=== PATIENT | female | born 1995 | race Caucasian/White ===

== ENCOUNTER 2022-03-02 18:01 | Inpatient (IN) ==
--- NOTE | 2022-03-02 18:58 | Emergency Department Note ---
Impression & Plan Suicidal ideation, UTI (urinary tract infection) ED Provider Note NAME: KHADRA BURR AGE: 26 SEX: F : 1995 ARRIVES VIA: Walk-In INFORMANT: [Patient] ED PROVIDER(S): [Horace Godinez MD] CHIEF COMPLAINT: Mental health evaluation HISTORY OF PRESENT ILLNESS: The patient is a 26-year-old female who presents to the ER with some suicidal thoughts. She has a plan to take pills. Patient has a long history of depression but things have worsened in the last several months. She moved back to this area, she has been here for 4 months. She and her are going through a divorce. The patient is under a lot of stress caring for her child who has a brain injury. She cannot sleep because she is always caring for him. The patient states that she also lost her grandmother earlier this year and that has been weighing on her. When the patient began having some suicidal thoughts and thinking about overdosing, she felt she needed some help, she presents for evaluation asking for a voluntary psychiatric stay. There has been no cough or congestion. No other complaints or concerns. She is eating but thinks she may have lost some weight. REVIEW OF SYSTEMS: See HPI for pertinent positives and negatives. A total of ten systems were reviewed and were otherwise negative. PMHx/PSHx: See Below SOCIAL HISTORY: See Below. PHYSICAL EXAM: GENERAL: Patient is in no acute distress. HEENT: No acute trauma, normocephalic atraumatic, mucous membranes moist, no nasal congestion, no scleral icterus. NECK: No stridor, no adenopathy, no meningismus, trachea is midline. LUNGS: Clear to auscultation bilaterally, no wheeze, no rhonchi, breath sounds equal. HEART: Without murmurs gallops or rubs, regular rate and rhythm. ABDOMEN: Soft, nontender, bowel sounds positive, no peritonitis. EXTREMITIES: No cyanosis or edema, full range of motion of all the joints without pain or difficulty, no signs for acute trauma. NEUROLOGIC: Oriented x 3, no acute motor or sensory deficits, no focal weakness. SKIN: No rash, no jaundice, no diaphoresis. Psychiatric: Cooperative, voluntary, tearful at times when discussing the stress of her life. Admits to thinking about taking pills in overdose. DIFFERENTIAL DIAGNOSIS: Mood disorder, infection, hypoglycemia, electrolyte abnormalities, depression, anxiety, suicidality, cardiac sources, intracerebral event, toxicologic etiology, trauma, neurologic event, as well as other pathologies. EMERGENCY DEPARTMENT COURSE/PROCEDURES: MEDICAL DECISION MAKING: There is no leukocytosis or concerning anemia. There is a normal platelet count. No renal failure or significant electrolyte abnormality, no concerning liver enzyme elevation. The patient appears to be in a euthyroid state. testing was negative. Urinalysis did suggest infection, urine culture is pending. Aspirin, Tylenol and alcohol levels were undetectable. Urine tox was negative. COVID test was negative. On exam, the patient was voluntary and cooperative. She did admit to some suicidal ideation with a plan to overdose on pills. The patient was felt medically clear. She was seen by psychiatry case management. She has been accepted to this hospital psychiatric floor, 3 S. She is being admitted voluntarily. The patient does have a UTI, this can easily be managed with Macrobid. A dose of oral Macrobid was given here as the start of treatment. Past Med/Surg History Medical History Depression Social History Smoking Status: Never smoker Preferred Language: Guatemalan 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: Effective Payroll Associate Required: No Beliefs That Will Affect Care: None Feels Safe at Home: Yes Assistive Devices: None Allergies Allergies Allergy/AdvReac Type Severity Reaction Status Date / Time No Known Allergies Allergy Unverified 03/02/22 22:31 Results & Data (ED) Vital Signs Vital Signs - 24 hr 03/02/22 18:20 Temperature 36.7 C Temperature Source Temporal Artery Scan Pulse Rate 87 Respiratory Rate 16 Respiratory Effort / Characteristics Non-Labored Spontaneous Respiratory Depth Normal Respiratory Pattern Regular Blood Pressure 136/80 Blood Pressure Mean 98 Blood Pressure Position Sitting Pulse Oximetry 98 Oxygen Delivery Method Room Air Sepsis Recent Fever Within 48 Hours No Sepsis New/Unexplained Change in Mental Status No Sepsis Action Taken by Nursing No Action Required Home Medications Current Medication List: was personally reviewed by me Laboratory Data Attestation: I reviewed the patient's lab results. Result diagrams: 03/02/22 19:00 03/02/22 19:00 Lab Results 03/02/22 03/02/22 03/02/22 Range/Units 18:50 18:50 18:55 WBC (4.8-10.8) K/ul RBC (3.93-5.22) M/uL Hgb (12.0-16.0) g/dl Hct (34.1-44.9) % MCV (80.0-100.0) fL MCH (25.0-34.0) pg MCHC (32.0-36.0) g/dL RDW Std Deviation (36.4-46.3) fL RDW Coeff of Iqra (11.5-14.5) % Plt Count (130-400) K/uL MPV (9.4-12.3) fL Immature Gran % (Auto) % Neut % (Auto) % Lymph % (Auto) % [place] % (Auto) % Eos % (Auto) % Baso % (Auto) % Neut # (Auto) (1.4-6.5) K/uL Lymph # (Auto) (1.2-3.4) K/uL [place] # (Auto) (0.24-0.82) K/uL Eos # (Auto) (0-0.50) K/uL Baso # (Auto) (0-0.2) K/uL Immature Gran # (Auto) (0.00-0.02) K/uL Sodium (136-145) mmol/L Potassium (3.5-5.1) mmol/L Chloride (98-107) mmol/L Carbon Dioxide (21-32) mmol/L Anion Gap (3-11) BUN (6-23) mg/dl Creatinine (0.6-1.2) mg/dl Est Cr Clr Drug Dosing ml/min Est GFR ( Amer) ml/min Est GFR (Non-Af Amer) ml/min BUN/Creatinine Ratio (10-20) Glucose (70-99(Fasting)) mg/dl Calcium (8.5-10.1) mg/dl Total Bilirubin (0.2-1.0) mg/dl AST (13-39) U/L ALT (7-52) U/L Alkaline Phosphatase (34-104) U/L Total Protein (6.0-8.3) gm/dl Albumin (3.4-5.0) gm/dl Globulin (2.5-4.0) gm/dl Albumin/Globulin Ratio (0.9-2) TSH (0.300-4.500) uIu/ml HCG, Qual (Negative) Urine Color Yellow Urine Appearance Clear (Clear) Urine pH 5.5 (4.5-7.5) Ur Specific [place] 1.024 (1.000-1.030) Urine Protein Negative (Negative) Urine Glucose (UA) Negative (Negative) Urine Ketones Negative (Negative) Urine Blood Negative (Negative) Urine Nitrite Positive A (Negative) Urine Bilirubin Negative (Negative) Urine Urobilinogen Negative (Negative) Ur Leukocyte Esterase Negative (Negative) Urine WBC (Auto) 1-5 (0-5) /hpf Urine RBC (Auto) 0-4 (0-4) /hpf U Hyaline Cast (Auto) 1-5 (0-5) /lpf U Epithel Cells (Auto) 20-30 H (0-5) /lpf Urine Bacteria (Auto) 4+ H (Negative) Salicylates (3.0-30) mg/dl Urine Opiates Screen Neg (Neg) Ur Methadone, Qual Neg (Neg) Acetaminophen (10-30) ug/ml Urine Barbiturates Neg (Neg) Ur Phencyclidine (PCP) Neg (Neg) U Amphetamin/Meth Scrn Neg (Neg) MDMA (Ecstasy) Screen Neg (Neg) U Benzodiazepines Scrn Neg (Neg) Ur Cocaine Metabolite Neg (Neg) U Marijuana (THC) Screen Neg (Neg) Ethyl Alcohol mg/dL (<10.0) mg/dl SARS-CoV-2, RNA, NAAT NEGATIVE (NEGATIVE) 03/02/22 03/02/22 03/02/22 Range/Units 19:00 19:00 19:00 WBC 5.96 (4.8-10.8) K/ul RBC 4.55 (3.93-5.22) M/uL Hgb 14.6 (12.0-16.0) g/dl Hct 42.7 (34.1-44.9) % MCV 93.8 (80.0-100.0) fL MCH 32.1 (25.0-34.0) pg MCHC 34.2 (32.0-36.0) g/dL RDW Std Deviation 44.1 (36.4-46.3) fL RDW Coeff of Iqra 12.8 (11.5-14.5) % Plt Count 236 (130-400) K/uL MPV 10.5 (9.4-12.3) fL Immature Gran % (Auto) 0.2 % Neut % (Auto) 70.1 % Lymph % (Auto) 22.7 % [place] % (Auto) 6.0 % Eos % (Auto) 0.3 % Baso % (Auto) 0.7 % Neut # (Auto) 4.18 (1.4-6.5) K/uL Lymph # (Auto) 1.35 (1.2-3.4) K/uL [place] # (Auto) 0.36 (0.24-0.82) K/uL Eos # (Auto) 0.02 (0-0.50) K/uL Baso # (Auto) 0.04 (0-0.2) K/uL Immature Gran # (Auto) 0.01 (0.00-0.02) K/uL Sodium 139 (136-145) mmol/L Potassium 4.0 (3.5-5.1) mmol/L Chloride 108 H (98-107) mmol/L Carbon Dioxide 27 (21-32) mmol/L Anion Gap 4 (3-11) BUN 18 (6-23) mg/dl Creatinine 0.83 (0.6-1.2) mg/dl Est Cr Clr Drug Dosing 87.1 ml/min Est GFR ( Amer) 111.2 ml/min Est GFR (Non-Af Amer) 96.0 ml/min BUN/Creatinine Ratio 21.7 H (10-20) Glucose 103 H (70-99(Fasting)) mg/dl Calcium 9.2 (8.5-10.1) mg/dl Total Bilirubin 0.5 (0.2-1.0) mg/dl AST 13 (13-39) U/L ALT 7 (7-52) U/L Alkaline Phosphatase 56 (34-104) U/L Total Protein 7.1 (6.0-8.3) gm/dl Albumin 4.4 (3.4-5.0) gm/dl Globulin 2.7 (2.5-4.0) gm/dl Albumin/Globulin Ratio 1.6 (0.9-2) TSH 0.718 (0.300-4.500) uIu/ml HCG, Qual (Negative) Urine Color Urine Appearance (Clear) Urine pH (4.5-7.5) Ur Specific [place] (1.000-1.030) Urine Protein (Negative) Urine Glucose (UA) (Negative) Urine Ketones (Negative) Urine Blood (Negative) Urine Nitrite (Negative) Urine Bilirubin (Negative) Urine Urobilinogen (Negative) Ur Leukocyte Esterase (Negative) Urine WBC (Auto) (0-5) /hpf Urine RBC (Auto) (0-4) /hpf U Hyaline Cast (Auto) (0-5) /lpf U Epithel Cells (Auto) (0-5) /lpf Urine Bacteria (Auto) (Negative) Salicylates (3.0-30) mg/dl Urine Opiates Screen (Neg) Ur Methadone, Qual (Neg) Acetaminophen (10-30) ug/ml Urine Barbiturates (Neg) Ur Phencyclidine (PCP) (Neg) U Amphetamin/Meth Scrn (Neg) MDMA (Ecstasy) Screen (Neg) U Benzodiazepines Scrn (Neg) Ur Cocaine Metabolite (Neg) U Marijuana (THC) Screen (Neg) Ethyl Alcohol mg/dL (<10.0) mg/dl SARS-CoV-2, RNA, NAAT (NEGATIVE) 03/02/22 03/02/22 03/02/22 Range/Units 19:00 19:00 19:00 WBC (4.8-10.8) K/ul RBC (3.93-5.22) M/uL Hgb (12.0-16.0) g/dl Hct (34.1-44.9) % MCV (80.0-100.0) fL MCH (25.0-34.0) pg MCHC (32.0-36.0) g/dL RDW Std Deviation (36.4-46.3) fL RDW Coeff of Iqra (11.5-14.5) % Plt Count (130-400) K/uL MPV (9.4-12.3) fL Immature Gran % (Auto) % Neut % (Auto) % Lymph % (Auto) % [place] % (Auto) % Eos % (Auto) % Baso % (Auto) % Neut # (Auto) (1.4-6.5) K/uL Lymph # (Auto) (1.2-3.4) K/uL [place] # (Auto) (0.24-0.82) K/uL Eos # (Auto) (0-0.50) K/uL Baso # (Auto) (0-0.2) K/uL Immature Gran # (Auto) (0.00-0.02) K/uL Sodium (136-145) mmol/L Potassium (3.5-5.1) mmol/L Chloride (98-107) mmol/L Carbon Dioxide (21-32) mmol/L Anion Gap (3-11) BUN (6-23) mg/dl Creatinine (0.6-1.2) mg/dl Est Cr Clr Drug Dosing ml/min Est GFR ( Amer) ml/min Est GFR (Non-Af Amer) ml/min BUN/Creatinine Ratio (10-20) Glucose (70-99(Fasting)) mg/dl Calcium (8.5-10.1) mg/dl Total Bilirubin (0.2-1.0) mg/dl AST (13-39) U/L ALT (7-52) U/L Alkaline Phosphatase (34-104) U/L Total Protein (6.0-8.3) gm/dl Albumin (3.4-5.0) gm/dl Globulin (2.5-4.0) gm/dl Albumin/Globulin Ratio (0.9-2) TSH (0.300-4.500) uIu/ml HCG, Qual Negative (Negative) Urine Color Urine Appearance (Clear) Urine pH (4.5-7.5) Ur Specific [place] (1.000-1.030) Urine Protein (Negative) Urine Glucose (UA) (Negative) Urine Ketones (Negative) Urine Blood (Negative) Urine Nitrite (Negative) Urine Bilirubin (Negative) Urine Urobilinogen (Negative) Ur Leukocyte Esterase (Negative) Urine WBC (Auto) (0-5) /hpf Urine RBC (Auto) (0-4) /hpf U Hyaline Cast (Auto) (0-5) /lpf U Epithel Cells (Auto) (0-5) /lpf Urine Bacteria (Auto) (Negative) Salicylates < 3.0 L (3.0-30) mg/dl Urine Opiates Screen (Neg) Ur Methadone, Qual (Neg) Acetaminophen < 3 L (10-30) ug/ml Urine Barbiturates (Neg) Ur Phencyclidine (PCP) (Neg) U Amphetamin/Meth Scrn (Neg) MDMA (Ecstasy) Screen (Neg) U Benzodiazepines Scrn (Neg) Ur Cocaine Metabolite (Neg) U Marijuana (THC) Screen (Neg) Ethyl Alcohol mg/dL < 10.0 (<10.0) mg/dl SARS-CoV-2, RNA, NAAT (NEGATIVE) Administered Medications Hydroxyzine HCl (Hydroxyzine Hcl 25 Mg Tab) 50 mg PO HSZ PRN PRN Reason: Insomnia Stop: 04/01/22 21:34 Last Admin: 03/02/22 22:08 Dose: 50 mg Documented By: CJG Discontinued Medications Nitrofurantoin Macrocrystals (Nitrofurantoin Monohydrate 100 Mg Cap) 100 mg PO NOW STA Stop: 03/02/22 19:44 Last Admin: 03/02/22 20:49 Dose: 100 mg Documented By: KMF Discharge Plan Visit Data Chief Complaint: Mental Health Evaluation Stated Complaint: MENTAL HEALTH EVALUATION ED Provider: Horace Godinez Discharge Problem: Suicidal ideation, UTI (urinary tract infection) Patient Disposition: Admitted As Inpatient Condition: Good Discharge Instructions Interventions: ED Discharge Assessment Last Done: 03/02/22 21:46
[2022-03-02 19:20] LABS: Basophils # (auto) 0.04 K/uL (0-0.2); Basophils % (auto) 0.7 %; Eosinophils # (auto) 0.02 K/uL (0-0.50); Eosinophils % (auto) 0.3 %; Hematocrit (blood only) 42.7 % (34.1-44.9); Hemoglobin 14.6 g/dl (12.0-16.0); Immature Granulocytes # (auto) 0.01 K/uL (0.00-0.02); Immature Granulocytes % (auto) 0.2 %; Lymphocytes # (auto) 1.35 K/uL (1.2-3.4); Lymphocytes % (auto) 22.7 %; Mean Corpuscular Hemoglobin 32.1 pg (25.0-34.0); Mean Corpuscular Hgb Conc 34.2 g/dL (32.0-36.0); Mean Corpuscular Volume 93.8 fL (80.0-100.0); Mean Platelet Volume 10.5 fL (9.4-12.3); Monocytes # (auto) 0.36 K/uL (0.24-0.82); Neutrophils # (auto) 4.18 K/uL (1.4-6.5); Neutrophils % (auto) 70.1 %; Platelet Count 236 K/uL (130-400); RDW Coefficient of Variation 12.8 % (11.5-14.5); RDW Standard Deviation 44.1 fL (36.4-46.3); Red Blood Count 4.55 M/uL (3.93-5.22); White Blood Count 5.96 K/ul (4.8-10.8)
[2022-03-02 19:29] LABS: Appearance Urine Clear (Clear); Bacteria Urine Automated 4+ (Negative); Bilirubin Urine Negative (Negative); Blood Urine Negative (Negative); Color Urine Yellow; Epithelial Cell Urine Auto 20-30 /lpf (0-5); Glucose Urine UA Negative (Negative); Ketones Urine Negative (Negative); Leukocyte Esterase Urine Negative (Negative); Nitrite Urine Positive (Negative); Protein Urine Negative (Negative); RBC Urine Automated 0-4 /hpf (0-4); Specific Gravity Urine 1.024 (1.000-1.030); Urobilinogen Urine Negative (Negative); pH Urine 5.5 (4.5-7.5)
[2022-03-02 19:40] LABS: Pregnancy Test, Serum Negative (Negative)
[2022-03-02 19:42] LABS: Albumin Globulin Ratio 1.6 (0.9-2); Albumin Level 4.4 gm/dl (3.4-5.0); BUN Creatinine Ratio 21.7 (10-20); Bilirubin,Total 0.5 mg/dl (0.2-1.0); Calcium 9.2 mg/dl (8.5-10.1); Creatinine Clr Calc Pharmacy 87.1 ml/min; Est GFR (African American) 111.2 ml/min; Globulin 2.7 gm/dl (2.5-4.0); Total Protein 7.1 gm/dl (6.0-8.3)
[2022-03-02] MEDS ORDERED: NITROFURANTOIN MONOHYDRATE 100 MG CAP PO STA (19:43)
[2022-03-02 19:45] LABS: Acetaminophen < 3 ug/ml (10-30); Salicylate < 3.0 mg/dl (3.0-30)
[2022-03-02 20:03] LABS: Amphetamines+Metham, Urine Neg (Neg); Barbiturates, Urine Neg (Neg); Benzodiazepine, Urine Neg (Neg); Cocaine, Urine Neg (Neg); MDMA (Ecstacy), Urine Neg (Neg); Methadone, Urine Neg (Neg); Opiate, Urine Neg (Neg); Phencyclidine, Urine Neg (Neg)
[2022-03-02] MEDS ORDERED: hydrOXYzine HCl 25 MG TAB PO PRN (21:35)
[2022-03-02] MEDS ORDERED: MAGNESIUM HYDROXIDE SUSP 30 ML UDC PO PRN (21:35)
[2022-03-02] MEDS ORDERED: ALUMINUM/MAGNESIUM SUSP 30 ML UDC PO PRN (21:35)
[2022-03-02] MEDS ORDERED: ACETAMINOPHEN 325 MG TAB PO PRN (21:35)
[2022-03-02] MEDS ORDERED: SODIUM CHLORIDE 0.65% NA SOLN 45 ML (OCEAN) PRN (21:35)
[2022-03-02] MEDS ORDERED: BISMUTH SUBSALICYLATE LIQD 236 ML PO PRN (21:35)
[2022-03-02] MEDS: hydrOXYzine HCl 25 MG TAB PO PRN (22:08)
[2022-03-03] MEDS: NITROFURANTOIN MONOHYDRATE 100 MG CAP PO SCH ×2 (11:22→22:59)
[2022-03-03] MEDS: lamoTRIgine 25 MG TAB PO SCH (11:22)
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
[2022-03-03] MEDS: hydrOXYzine HCl 25 MG TAB PO PRN (23:04)
[2022-03-04 06:34] VITALS: O2SAT 99
[2022-03-04] MEDS: NITROFURANTOIN MONOHYDRATE 100 MG CAP PO SCH ×2 (09:15→20:33)
[2022-03-04] MEDS: lamoTRIgine 25 MG TAB PO SCH (09:15)
--- NOTE | 2022-03-04 13:35 | Psychiatric Progress Note ---
Date of Service March 04, 2022 Impression / Recommendations Impression 26 yo female with a complex constellation of symptoms in the context of severe psychosocial stressors, most notably primary caregiver for young twins (1 is trach/vent dependent) with little support and recent losses (marriage, grandmother, friend). She has chronic sleep disruption and was experiencing SI for 1.5 weeks until could arrange care for kids to come inpatient. She has a prior positive response to [place] but doesn't want to resume due to side effects. 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 03/04/2022: improving (1) Bipolar 2 disorder, major depressive episode: (2) Post traumatic stress disorder (PTSD): (3) UTI (urinary tract infection): (4) History of ADHD: Plan 03/04/22: continue current meds and tx plan. Ativan preferentially for anxiety for anxiety then Vistaril hs. 03/03/22: The patient was admitted to the [facility] ([facility] mental health unit) on q15 min checks (behavioral with suicide precautions) for safety. The patient will participate in group, recreational, and milieu therapies and will be offered additional individual and family sessions as clinically appropriate. Risks/benefits/alternatives reviewed re: Lamictal for mood stabilization. Discussion included but was not limited to slow titration to decrease risks of Marcial's Matt syndrome. Patient agrees to hold med/notify current prescriber of rash immediately. Reviewed that can have drug drug interactions with progestin only OCPs since she mentioned being on them in past. She agrees to lamictal 25 mg hs and understands reliable form of control is recommended given risk of craniofacial/other abnormalities. 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, establish local providers Suicide Risk Level Suicide Risk Level: High-Moderate (q15 min suicide checks) Risk Factors Assessment : Yes Do You Have Access To A Gun?: No Health Problems: Yes Mental Health Diagnoses: Yes Substance Use Disorders: No Previous Attempt: No Previous Psychiatric Hospitalization: Yes Protective Factors Assessment Responsible for Young Children: Yes Employed: No Stable Relationships: No Supportive Family: Yes (maternal aunt) Interval History Identifying Information KHADRA BURR is a 26-year-old F who recently moved back to the area from [place], has a history of multiple psychiatric dx and 1 prior inpatient stay, and was admitted on 03/02/22 21:35 on a 201 voluntary commitment for SI with plan. Chief Complaint "I feel like a human being." Review of Systems Sleep Information Total Hours of Sleep: 6 Meal Information Percent Meal Consumed - Breakfast: 100 Percent Meal Consumed - Dinner: 100 Subjective Subjective Patient was seen & assessed and interval progress reviewed with treatment team. Patient reports uninterrupted sleep has been beneficial for her mood. She still worries about anxiety during the day and feels that Vistaril at various doses and Buspar have been unhelpful in the past. She uses prn Ativan sparingly at home. No rash with starting Lamictal and reviewed titration schedule. Physical Exam Psychiatric Orientation: alert and oriented x 3 Apperance: appropriately dressed and appropriately groomed Eye Contact: good eye contact Motor Behavior: no abnormal motor movements Speech: normal rate/rhythm/volume of speech Affect: + depressed affect Mood: + depressed mood Thought Process: goal directed thought process Thought Content: reality based without delusions Suicidal Thoughts: denies suicidal thoughts Homicidal Thoughts: denies homicidal thoughts Hallucinations: no auditory hallucinations and no visual hallucinations Cognition: attention grossly intact and language grossly intact Estimated Intelligence: consistent with education level Insight: + limited insight Judgement: + limited judgement Vital Signs (Past 24 Hours) Last Vital Signs Temp 36.2 C L 03/04/22 06:00 Pulse 105 H 03/04/22 06:33 Resp 18 03/04/22 06:00 BP 131/80 03/04/22 06:33 Pulse Ox 99 03/04/22 06:00 O2 Del Method 03/04/22 06:00 Results & Data (U) Current Inpatient Medications Current Inpatient Medications: Current Inpatient Medications Acetaminophen (Acetaminophen 325 Mg Tab) 650 mg PO Q4H PRN PRN Reason: Headache or Minor Fever Stop: 04/01/22 21:34 Al Hydrox/Mg Hydrox/Simethicone (Aluminum/Magnesium Susp 30 Ml Udc) 30 ml PO Q4H PRN PRN Reason: GI Upset Stop: 04/01/22 21:34 Bismuth Subsalicylate (Bismuth Subsalicylate Liqd 236 Ml) 15 ml PO PRN PRN PRN Reason: Loose Stool Stop: 04/01/22 21:34 Hydroxyzine HCl (Hydroxyzine Hcl 25 Mg Tab) 50 mg PO HSZ PRN PRN Reason: Insomnia Stop: 04/01/22 21:34 Last Admin: 03/03/22 23:04 Dose: 50 mg Hydroxyzine HCl (Hydroxyzine Hcl 25 Mg Tab) 25 mg PO Q4H PRN PRN Reason: Anxiety Stop: 04/01/22 21:34 Lamotrigine (Lamotrigine 25 Mg Tab) 25 mg PO QAM NANCY Stop: 04/02/22 10:44 Last Admin: 03/04/22 09:15 Dose: 25 mg Magnesium Hydroxide (Magnesium Hydroxide Susp 30 Ml Udc) 30 ml PO DAILY PRN PRN Reason: Constipation Stop: 04/01/22 21:34 Nitrofurantoin Macrocrystals (Nitrofurantoin Monohydrate 100 Mg Cap) 100 mg PO BID NANCY Stop: 03/07/22 09:14 Last Admin: 03/04/22 09:15 Dose: 100 mg Sodium Chloride (Sodium Chloride 0.65% Na Soln 45 Ml ([place])) 1 - 2 sprays NA PRN PRN PRN Reason: Nasal Dryness/Congestion Stop: 04/01/22 21:34 Mental Health & Subst Abuse Tx Therapist Name of Therapist: None Collaborative Physician Name of Collaborative Physician: None Post Discharge Appointments Primary Care Physician Name Of Family Doctor: Seeking local PCP (1) UTI (urinary tract infection) Hematuria presence: without hematuria Urinary tract infection type: acute cystitis Qualified Code(s): N30.00 - Acute cystitis without hematuria
[2022-03-04] MEDS ORDERED: LORazepam 0.5 MG TAB PO PRN (13:39)
[2022-03-04] MEDS: hydrOXYzine HCl 25 MG TAB PO PRN (20:33)
[2022-03-05 06:31] VITALS: PULSE 83
--- NOTE | 2022-03-05 08:39 | Psychiatric Progress Note ---
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 She has chronic sleep disruption and was experiencing SI for 1.5 weeks until could arrange care for kids to come inpatient. She has a prior positive response to [place] but doesn't want to resume due to side effects. 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 Diagnostically consistent with BPAD current depressive episode. 03/05/22: Reviewed interim progress per Dr. Smith. Steady improvement in mood and without SI. Interested in addition of SSRI, escitalopram, to help with anxiety and depression. Discussed medication treatment options in detail. Discussed risks, benefits and alternatives. Patient would like to start and consented to escitalopram for bipolar depression and JACOB. Reviewed side effects including but not limited to: GI, TILLMAN, sexual side effects, and counseled on black box warning of potential for emergence of or increased SI and need to let staff know should this occur or should they feel unsafe. Also reviewed at length the risk for grisel or hypomania emergence on SSRI as she is not yet on therapeutic dose of lamictal and that this will take a few weeks to achieve mood stabilization effective dose due to need for slow titration. She understands this and feels that potential risks of grisel/hypomania do not outweigh benefits of further treatment for depression and anxiety and she feels able to recognize signs of grisel and agrees to stop escitalopram if this were to occur. (1) Bipolar 2 disorder, major depressive episode: (2) Post traumatic stress disorder (PTSD): (3) UTI (urinary tract infection): (4) History of ADHD: Plan 03/05/22: Start escitalopram 10mg qd for depression and anxiety. Continue with lamictal. Support meeting held. 03/04/22: continue current meds and tx plan. Ativan preferentially for anxiety then Vistaril hs. 03/03/22: The patient was [facility]) on q15 min checks (behavioral with suicide precautions) for safety. The patient will participate in group, recreational, and milieu therapies and will be offered additional individual and family sessions as clinically appropriate. Risks/benefits/alternatives reviewed re: Lamictal for mood stabilization. Discussion included but was not limited to slow titration to decrease risks of Marcial's Matt syndrome. Patient agrees to hold med/notify current prescriber of rash immediately. Reviewed that can have drug drug interactions with progestin only OCPs since she mentioned being on them in past. She agrees to lamictal 25 mg hs and understands reliable form of control is recommended given risk of craniofacial/other abnormalities. Suicide Risk Level Suicide Risk Level: Moderate (q15 min suicide checks) (No longer having SI but still with depression) Risk Factors Assessment : Yes Do You Have Access To A Gun?: No Health Problems: Yes Mental Health Diagnoses: Yes Substance Use Disorders: No Previous Attempt: No Previous Psychiatric Hospitalization: Yes Protective Factors Assessment Responsible for Young Children: Yes Employed: No Stable Relationships: No Supportive Family: Yes (maternal aunt) Interval History Identifying Information KHADRA BURR is a 26-year-old F who recently moved back to the area from [place], has a history of multiple psychiatric dx and 1 prior inpatient stay, and was admitted on 03/02/22 21:35 on a 201 voluntary commitment for SI with plan. Chief Complaint "I didn't sleep as well last night". Review of Systems Sleep Information Total Hours of Sleep: 7.5 Meal Information Percent Meal Consumed - Breakfast: 100 Percent Meal Consumed - Lunch: 100 Percent Meal Consumed - Dinner: 100 Subjective Subjective Patient was seen & assessed and interval progress reviewed with treatment team nursing and social work. Had more difficulty sleeping. Had family meeting. 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 Interested in SSRI trial, reviewed past symptoms of grisel and ways she can monitor for possible emergence of hypomania. Denies any side effects from lamictal nor Vistaril. Physical Exam Psychiatric Orientation: alert and oriented x 3 Apperance: appropriately dressed and appropriately groomed Eye Contact: good eye contact Motor Behavior: no abnormal motor movements Speech: normal rate/rhythm/volume of speech Affect: euthymic affect Mood: + depressed mood Thought Process: goal directed thought process Thought Content: reality based without delusions Suicidal Thoughts: denies suicidal thoughts Homicidal Thoughts: denies homicidal thoughts Hallucinations: no auditory hallucinations and no visual hallucinations Cognition: attention grossly intact and language grossly intact Estimated Intelligence: consistent with education level Insight: + fair insight Judgement: + fair judgement Vital Signs (Past 24 Hours) Last Vital Signs Temp 36.8 C 03/05/22 06:00 Pulse 83 03/05/22 06:30 Resp 18 03/05/22 06:00 BP 108/73 03/05/22 06:30 Pulse Ox 99 03/04/22 06:00 O2 Del Method 03/04/22 06:00 Results & Data ([facility]) Current Inpatient Medications Current Inpatient Medications: Current Inpatient Medications Acetaminophen (Acetaminophen 325 Mg Tab) 650 mg PO Q4H PRN PRN Reason: Headache or Minor Fever Stop: 04/01/22 21:34 Al Hydrox/Mg Hydrox/Simethicone (Aluminum/Magnesium Susp 30 Ml Udc) 30 ml PO Q4H PRN PRN Reason: GI Upset Stop: 04/01/22 21:34 Bismuth Subsalicylate (Bismuth Subsalicylate Liqd 236 Ml) 15 ml PO PRN PRN PRN Reason: Loose Stool Stop: 04/01/22 21:34 Hydroxyzine HCl (Hydroxyzine Hcl 25 Mg Tab) 50 mg PO HSZ PRN PRN Reason: Insomnia Stop: 04/01/22 21:34 Last Admin: 03/04/22 20:33 Dose: 50 mg Lamotrigine (Lamotrigine 25 Mg Tab) 25 mg PO QAM NANCY Stop: 04/02/22 10:44 Last Admin: 03/04/22 09:15 Dose: 25 mg Lorazepam (Lorazepam 0.5 Mg Tab) 0.25 mg PO Q6 PRN PRN Reason: Anxiety Stop: 04/03/22 13:38 Magnesium Hydroxide (Magnesium Hydroxide Susp 30 Ml Udc) 30 ml PO DAILY PRN PRN Reason: Constipation Stop: 04/01/22 21:34 Nitrofurantoin Macrocrystals (Nitrofurantoin Monohydrate 100 Mg Cap) 100 mg PO BID NANCY Stop: 03/07/22 09:14 Last Admin: 03/04/22 20:33 Dose: 100 mg Sodium Chloride (Sodium Chloride 0.65% Na Soln 45 Ml ([place])) 1 - 2 sprays NA PRN PRN PRN Reason: Nasal Dryness/Congestion Stop: 04/01/22 21:34 Mental Health & Subst Abuse Tx Psychiatrist Name of Psychiatrist: [facility] - Annette TRIPLETTP Psychiatrist's Date of Appointment with Psychiatrist: 03/29/22 Time of Appointment with Psychiatrist: 11 AM Psychiatric Appointment Comment: [address] [place] [address] Therapist Name of Therapist: [facility] - Jill RICHEYW Therapist's Date of Therapist Appointment: 03/15/22 Time of Therapist Appointment: 11:30 AM Therapy Appointment Comment: [address] [place] [address] Mill Manager Name of Mill Manager: [facility] Phone Number for Mill Manager: [phone] Post Discharge Appointments Primary Care Physician Name Of Family Doctor: Seeking local PCP (1) UTI (urinary tract infection) Hematuria presence: without hematuria Urinary tract infection type: acute cystitis Qualified Code(s): N30.00 - Acute cystitis without hematuria
[2022-03-05] MEDS: NITROFURANTOIN MONOHYDRATE 100 MG CAP PO SCH ×2 (08:51→20:39)
[2022-03-05] MEDS: lamoTRIgine 25 MG TAB PO SCH (08:51)
[2022-03-05] MEDS: ESCITALOPRAM OXALATE 10 MG TAB PO SCH (14:10)
[2022-03-05] MEDS: hydrOXYzine HCl 25 MG TAB PO PRN (20:39)
[2022-03-06 06:37] VITALS: BP 110/78; TEMP 98
--- NOTE | 2022-03-06 08:57 | Discharge Summary ---
Date of Service March 06, 2022 History of Present Illness The patient reports worsening mood, anxiety, and SI in the context of multiple stressors. A good friend who happens to be the ex of her current boyfriend recently overdosed on illicit substances. She is in the process of finalizing her divorce. 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 He has not only a trach but a home ventilator and lines that require suctioning and flushing very hour overnight. They have not been able to find overnight staffing for him since relocating so "I'm on my own." Even during the periods she is not providing care she is by his side and he will cough/awaken her. 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 "I don't know how I'll do it all." She is future focussed with regards to her boys; the other twin is taxing for different reasons, "he's hyper". She also reports stress of losing her grandmother (maternal figure) in May adding "she raised me" as mother was "unavailable due to schizophrenia and bipolar". Mirian reports being diagnosed with ADHD inattentive subtype, OCD, bipolar, and PTSD previously. OCD is because "my son's room has to be perfect, everything is around him." She does have periods of euphoria that last 3-4 days "at least", the last being after stopping her lithium and thought it was odd she felt like going out drinking, etc around her grandmother's . She denies a history of psychotic symptoms. It is hard to know how much lack of sleep is her son's care vs. true inability to sleep. Physical Exam Vital Signs (Past 24 Hours) Last Vital Signs Temp 36.7 C 03/06/22 06:36 Pulse 83 03/06/22 06:37 Resp 18 03/06/22 06:36 BP 110/78 03/06/22 06:37 Pulse Ox 99 03/04/22 06:00 O2 Del Method 03/04/22 06:00 See admission H&P and DOD summary. Principal Diagnosis Bipolar affective disorder type II, current depressive episode Psychiatric Data See daily stay summary. In short, safety was maintained and the patient was cooperative with care. Medication changes included initiation of lamictal 25mg qd and escitalopram 5mg qd and they tolerated this well. She used Vistaril prn for insomnia but did not want an outpatient script for this as it caused some grogginess. She was given a new script for 10 tabs of Klonopin 0.25mg daily prn to be used over the next months for panic attacks as she has used this before and found it very helpful. Escitalopram was reduced from 10mg to 5mg daily after some mild jitteriness/restlessness at the higher 10mg dose. A family session was held and safety plan was completed prior to discharge. She actively and insightfully participated in safety planning and in discussions about ways to seek support and recognizing warning signs and utilizing coping skills. Reviewed mobile apps that could be used for additional ways to have their safety plan and contacts easily available should thoughts of SI re-emerge in the future. Reviewed importance of seeking emergency care should SI intensify, worsen or should they feel unsafe in the future which they agree to do. 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 Day of Discharge Assessment Today the patient voices readiness for discharge. They note improvement in mood and anxiety. They deny thoughts of harm to self or others. Thoughts are organized and they are clinically improved from admission. There is no evidence of psychosis. They improved in the hospital with support and medication adjustments. They agree to take medications as prescribed and keep follow-up appointments. At the time of the discharge they are deemed to be stable and appropriate for outpatient level of care. They are not deemed to be at imminent risk of harm to self or others. They are aware of emergency and crisis services. Knows to call 911 or go to nearest emergency care center if in a crisis which cannot be handled as an outpatient. Transition of Care Transition Of Care Record: was reviewed with the patient Advance Directives Advance Directives Information Provided: Yes Advance Directives: No Mental Health Advance Directive: No Advance Directives on File: No Living Will: No Power of Pre K Special Education Teacher: No Advance Directives Reason:: Declines as Mental Health Visit. Suicide Risk Level Suicide Risk Level Comments: Acute risk is low given improvement in mood and denial of SI, lack of access to lethal means, improvement in sleep, hopefulness. Chronic risk is low given some non-modifiable risk factors including prior psychiatric hospitalization but also with many protective factors including young children, support from extended family and future-oriented about starting a new career path. Counseled on ways to reduce acute and chronic risk including engaging with outpatient providers, using safety plan if needed, utilizing supports, taking medication, and using coping skills. Modifiable risk factors of SI and depression were addressed during hospitalization through development of new coping skills, family meeting, safety planning, and medication adjustments. Risk Factors Assessment : Yes Do You Have Access To A Gun?: No Health Problems: Yes Mental Health Diagnoses: Yes Substance Use Disorders: No Previous Attempt: No Previous Psychiatric Hospitalization: Yes Hopelessness: No Protective Factors Assessment Responsible for Young Children: Yes Employed: No Stable Relationships: No Supportive Family: Yes (maternal aunt) Discharge Data Lab Results 03/02/22 03/02/22 03/02/22 18:50 18:50 18:55 WBC RBC Hgb Hct MCV MCH MCHC RDW Std Deviation RDW Coeff of Iqra Plt Count MPV Immature Gran % (Auto) Neut % (Auto) Lymph % (Auto) Loí[place] % (Auto) Eos % (Auto) Baso % (Auto) Neut # (Auto) Lymph # (Auto) [place] # (Auto) Eos # (Auto) Baso # (Auto) Immature Gran # (Auto) Sodium Potassium Chloride Carbon Dioxide Anion Gap BUN Creatinine Est Cr Clr Drug Dosing Est GFR ( Amer) Est GFR (Non-Af Amer) BUN/Creatinine Ratio Glucose Calcium Total Bilirubin AST ALT Alkaline Phosphatase Total Protein Albumin Globulin Albumin/Globulin Ratio TSH HCG, Qual Urine Color Yellow Urine Appearance Clear Urine pH 5.5 Ur Specific Ronan 1.024 Urine Protein Negative Urine Glucose (UA) Negative Urine Ketones Negative Urine Blood Negative Urine Nitrite Positive A Urine Bilirubin Negative Urine Urobilinogen Negative Ur Leukocyte Esterase Negative Urine WBC (Auto) 1-5 Urine RBC (Auto) 0-4 U Hyaline Cast (Auto) 1-5 U Epithel Cells (Auto) 20-30 H Urine Bacteria (Auto) 4+ H Salicylates Urine Opiates Screen Neg Ur Methadone, Qual Neg Acetaminophen Urine Barbiturates Neg Ur Phencyclidine (PCP) Neg U Amphetamin/Meth Scrn Neg MDMA (Ecstasy) Screen Neg U Benzodiazepines Scrn Neg Ur Cocaine Metabolite Neg U Marijuana (THC) Screen Neg Ethyl Alcohol mg/dL SARS-CoV-2, RNA, NAAT NEGATIVE 03/02/22 03/02/22 03/02/22 19:00 19:00 19:00 WBC 5.96 RBC 4.55 Hgb 14.6 Hct 42.7 MCV 93.8 MCH 32.1 MCHC 34.2 RDW Std Deviation 44.1 RDW Coeff of Iqra 12.8 Plt Count 236 MPV 10.5 Immature Gran % (Auto) 0.2 Neut % (Auto) 70.1 Lymph % (Auto) 22.7 Loíza % (Auto) 6.0 Eos % (Auto) 0.3 Baso % (Auto) 0.7 Neut # (Auto) 4.18 Lymph # (Auto) 1.35 [place] # (Auto) 0.36 Eos # (Auto) 0.02 Baso # (Auto) 0.04 Immature Gran # (Auto) 0.01 Sodium 139 Potassium 4.0 Chloride 108 H Carbon Dioxide 27 Anion Gap 4 BUN 18 Creatinine 0.83 Est Cr Clr Drug Dosing 87.1 Est GFR ( Amer) 111.2 Est GFR (Non-Af Amer) 96.0 BUN/Creatinine Ratio 21.7 H Glucose 103 H Calcium 9.2 Total Bilirubin 0.5 AST 13 ALT 7 Alkaline Phosphatase 56 Total Protein 7.1 Albumin 4.4 Globulin 2.7 Albumin/Globulin Ratio 1.6 TSH 0.718 HCG, Qual Urine Color Urine Appearance Urine pH Ur Specific Ronan Urine Protein Urine Glucose (UA) Urine Ketones Urine Blood Urine Nitrite Urine Bilirubin Urine Urobilinogen Ur Leukocyte Esterase Urine WBC (Auto) Urine RBC (Auto) U Hyaline Cast (Auto) U Epithel Cells (Auto) Urine Bacteria (Auto) Salicylates Urine Opiates Screen Ur Methadone, Qual Acetaminophen Urine Barbiturates Ur Phencyclidine (PCP) U Amphetamin/Meth Scrn MDMA (Ecstasy) Screen U Benzodiazepines Scrn Ur Cocaine Metabolite U Marijuana (THC) Screen Ethyl Alcohol mg/dL SARS-CoV-2, RNA, NAAT 03/02/22 03/02/22 03/02/22 19:00 19:00 19:00 WBC RBC Hgb Hct MCV MCH MCHC RDW Std Deviation RDW Coeff of Iqra Plt Count MPV Immature Gran % (Auto) Neut % (Auto) Lymph % (Auto) [place] % (Auto) Eos % (Auto) Baso % (Auto) Neut # (Auto) Lymph # (Auto) [place] # (Auto) Eos # (Auto) Baso # (Auto) Immature Gran # (Auto) Sodium Potassium Chloride Carbon Dioxide Anion Gap BUN Creatinine Est Cr Clr Drug Dosing Est GFR ( Amer) Est GFR (Non-Af Amer) BUN/Creatinine Ratio Glucose Calcium Total Bilirubin AST ALT Alkaline Phosphatase Total Protein Albumin Globulin Albumin/Globulin Ratio TSH HCG, Qual Negative Urine Color Urine Appearance Urine pH Ur Specific Ronan Urine Protein Urine Glucose (UA) Urine Ketones Urine Blood Urine Nitrite Urine Bilirubin Urine Urobilinogen Ur Leukocyte Esterase Urine WBC (Auto) Urine RBC (Auto) U Hyaline Cast (Auto) U Epithel Cells (Auto) Urine Bacteria (Auto) Salicylates < 3.0 L Urine Opiates Screen Ur Methadone, Qual Acetaminophen < 3 L Urine Barbiturates Ur Phencyclidine (PCP) U Amphetamin/Meth Scrn MDMA (Ecstasy) Screen U Benzodiazepines Scrn Ur Cocaine Metabolite U Marijuana (THC) Screen Ethyl Alcohol mg/dL < 10.0 SARS-CoV-2, RNA, NAAT Hospital Course (1) Bipolar 2 disorder, major depressive episode: (2) Post traumatic stress disorder (PTSD): (3) UTI (urinary tract infection): (4) History of ADHD: Plan 03/06/22: Reduced escitalopram to 5mg qd due to some jitteriness/restlessness. 03/05/22: Start escitalopram 10mg qd for depression and anxiety. Continue with lamictal. Support meeting held. 03/04/22: continue current meds and tx plan. Ativan preferentially for anxiety then Vistaril hs. 03/03/22: The patient was admitted to the [facility] on q15 min checks (behavioral with suicide precautions) for safety. The patient will participate in group, recreational, and milieu therapies and will be offered additional individual and family sessions as clinically appropriate. Risks/benefits/alternatives reviewed re: Lamictal for mood stabilization. Discussion included but was not limited to slow titration to decrease risks of Marcial's Matt syndrome. Patient agrees to hold med/notify current prescriber of rash immediately. Reviewed that can have drug drug interactions with progestin only OCPs since she mentioned being on them in past. She agrees to lamictal 25 mg hs and understands reliable form of control is recommended given risk of craniofacial/other abnormalities. Mental Health & Subst Abuse Tx Psychiatrist Name of Psychiatrist: [facility] - Annette Anderson PMHNP Psychiatrist's Date of Appointment with Psychiatrist: 03/29/22 Time of Appointment with Psychiatrist: 11 AM Psychiatric Appointment Comment: [address] [place] [address] Therapist Name of Therapist: [facility] - Jill Shannon LCSW Therapist's Date of Therapist Appointment: 03/15/22 Time of Therapist Appointment: 11:30 AM Therapy Appointment Comment: [address] [place] [address] Floatlight Loading Supervisor Name of Floatlight Loading Supervisor: [facility] Phone Number for Floatlight Loading Supervisor: [phone] Case Management Appointment Comment: Please call to establish case management services. Post Discharge Appointments Primary Care Physician Name Of Family Doctor: [facility] Cam Primary Care Provider Appointment Comment: Please call to establish PCP. Contact Information Discharge Discharge [address]: [address] [place] [address] PATRICIA Levy [address] Discharge Plan Discharge Items Patient Disposition: Home - Self-Care Reason For Visit: MENTAL HEALTH EVALUATION Discharge Diagnosis: Bipolar affective disorder type II current depressive episode Condition on Discharge: Good Activity: Resume your previous activity Non-emergency contact: Primary Care Provider, Psychiatrist, Therapist and Flame Cutting Machine Operator Helper Call non-emergency contact if: you have any medication questions and your symptoms worsen Follow-up/Referrals: PCP,NO [Primary Care Provider] - Diet: Regular Addtl Attending Provider Instructions: Optional mobile apps we discussed: -Suicide safety plan -Virtual Hope Box SPECIAL CARE INSTRUCTIONS: 1. Follow through with your scheduled aftercare appointments. If unable to keep an appointment, please call to reschedule. 2. Take your medication only as prescribed. Medication should not be changed or stopped without the approval of your doctor. In the event of worsening symptoms or concerns about side effects, contact your doctor immediately. 3. Utilize new healthy coping skills, anger management skills, and stress management skills learned during your hospitalization. Journal feelings and process them with a support person. Identify stressors or situations that may result in relapse, deterioration or inappropriate behaviors and develop a plan to deal with those issues. 4. If your coping skills are ineffective and you are in crisis, contact your outpatient providers for direction. If unable to reach your providers, please call the [facility] CRISIS LINE AT , go to the [facility] walk-in center at [address], [address], [place], or go to the closest Emergency Room. 5. Avoid alcohol and un-prescribed drugs. 6. You have been provided with the Mental Health Advance Directives Pamphlet for your review. 7. Your condition is stable for discharge to outpatient level of care, but recovery is an ongoing process. Ifthoughts to harm yourself or others return, follow the safety plan developed during your stay. Planning for a safe return home includes securing weapons. Our treatment team recommends weaponsbe removed from the home until your outpatient provider reassesses your progress. In rare cases where the items themselvescannot be removed, guns and ammunitionshould be secured separatelyand keys stored by a reliable personoutside of the home. If you were admitted on an involuntary commitment, the police or other legal authorities may be involved in this process. AFTERCARE APPOINTMENTS: * Please call your insurance company prior to your scheduled appointment to confirm your aftercare providers are covered. Take your insurance information to your appointments. WHO TO CALL AND WHEN: Medical Emergencies: For questions or emergencies related to your hospital stay, please contact the Inpatient Behavioral Health Unit at [phone]. A mix mill tender is on-call 14/11 for the Behavioral Health Unit for emergencies At any time you feel your situation is an emergency, you may also call 911 immediately. Pending Studies at Discharge: No Stand-Alone Forms: My [facility] Medications and DC Order Prescriptions: New nitrofurantoin monohyd/m-cryst 100 mg Capsule 100 mg PO BID Qty: 1 0RF escitalopram oxalate 5 mg tablet 5 mg PO DAILY 30 Days Qty: 30 0RF lamotrigine [Lamictal] 25 mg Tablet 25 mg PO QAM 30 Days Qty: 30 0RF lorazepam 0.5 mg Tablet 0.25 mg PO DAILY PRN (Reason: panic attacks ) 30 Days Qty: 5 0RF Discharge Orders: Discharge Order (Routine); Ordered 03/06/22 Ordered By: Oneyda Jackson Admission Data Admit Date/Time: 03/02/22 21:35 Attending Provider: Estelle Smith Admit Provider: Estelle Smith Primary Care Provider: PCP,NO Other Interventions: Discharge Summary Assessment (RN) Last Done: 03/06/22 10:07 PSY Interdisciplinary Discharge Planning Last Done: 03/06/22 09:33 Coding Level of Care Code 22694 D/C day mgmt > 30 min Diagnoses Bipolar 2 disorder, major depressive episode F31.81 Post traumatic stress disorder (PTSD) F43.10 UTI (urinary tract infection) N30.00 Hematuria presence: without hematuria Urinary tract infection type: acute cystitis History of ADHD Z86.59 Time Spent (min) 35
[2022-03-06] MEDS: NITROFURANTOIN MONOHYDRATE 100 MG CAP PO SCH (09:24)
[2022-03-06] MEDS: lamoTRIgine 25 MG TAB PO SCH (09:24)
[2022-03-06] MEDS: ESCITALOPRAM OXALATE 10 MG TAB PO SCH (09:24)
[2022-03-07] MEDS ORDERED: ESCITALOPRAM OXALATE 10 MG TAB PO SCH (09:00)
== END 2022-03-06 10:30 | disposition home or self-care (01) | DRG 885 ==
LOC: ED 18:01 → 3S 21:35

== ENCOUNTER 2023-09-18 15:33 | Inpatient (IN) ==
[2023-09-18 15:40] VITALS: O2SAT 97
--- NOTE | 2023-09-18 15:41 | Emergency Department Note ---
Impression & Plan Depression with suicidal ideation, UTI (urinary tract infection) ED Provider Note NAME: KHADRA BURR AGE: 27 SEX: F : 1995 ARRIVES VIA: Walk-In INFORMANT: Patient, ED PROVIDER(S): Joaquim Gonsalez MD CHIEF COMPLAINT: Suicidal ideation with plan MEDICAL DECISION MAKING: Patient presents due to concern for suicidal ideation with plan and is currently voluntary. Blood work was obtained. Blood work shows a normal white count H&H and platelet count kidney function is unremarkable with normal electrolytes. BSG 138 but nonfasting and not DKA. Urinalysis does show concern for infection given positive nitrites whites leukocyte esterase and bacteria. Salicylate Tylenol and alcohol negative. COVID-negative and UDS is negative. Patient was ordered first dose Keflex. Patient may receive additional treatment of Keflex twice daily for 5 to 7 days. Referrals were made by psych case management the patient was accepted for inpatient voluntary treatment to [facility] S. Discussion w/ other healthcare providers: ED case management Prior /Outside records reviewed: Reviewed discharge summary from Oney[facility] Mallory from March 06, 2022. Patient has known history of bipolar 2 disorder with depressive symptoms. Differential diagnosis: Mood disorder, infection, hypoglycemia, electrolyte abnormalities, dehydration, medication side effect among others were considered. Diagnostics, as interpreted by me: ECG: None Medical decision rules: Suicide risk severity score Imaging studies: None HPI: Patient presents due to concern for suicidal ideation and is accompanied by a friend who does provide some of the history. The patient states that she has been having worsening suicidal thoughts depression the last several days. Patient reportedly obtained a helium canister and went to her grandmother's grave with the idea of committing suicide. She did not go through with it last night. Patient reportedly had a similar instance in April 2022. Patient states some of this does stem from an that she had last year which she did not want to go through with at the time. Patient states that this is traumatizing. Patient is being arrest by her boyfriend. Patient does not have a PFA. The patient drinks alcohol socially but denies any tobacco or drug use. Patient states that she had been on medications for her mental wellness but lost her insurance about a year ago. The patient is currently in school. Patient denies any HI or AVH. The patient does not have access to guns or weapons. She lives with her 2 children as well as her mom. The patient does feel safe at home. The patient's sleep and appetite have been poor. The patient is agreeable to inpatient treatment. PAST MEDICAL HISTORY: See Below PAST SURGICAL HISTORY: See Below SOCIAL HISTORY: See Below HOME MEDICATIONS: See Below ALLERGIES: See Below VITALS: See Below PHYSICAL EXAMINATION: GENERAL: Tearful. Nontoxic in appearance EYE EXAM: Normal conjunctiva. PERRL, no anisocoria and EOM's grossly intact w/o pain. OROPHARYNX: Moist mucus membranes, grossly normal dentition. NECK: Trachea midline, no stridor. Supple, no nuchal rigidity, no adenopathy, non-tender. No signs of meningismus. FROM of the neck with good chin to chest and neck extension. LUNGS: Clear to auscultation. Normal chest wall mechanics. HEART: NSR, no MRG. ABDOMEN: Abdomen soft, non-tender, no masses, no rebound or guarding. BACK: No CVA TTP. SKIN: No rashes and no bruising. UPPER EXTREMITIES: Upper extremities are grossly normal. LOWER EXTREMITIES: Grossly normal, no edema. NEURO EXAM: A&O x3, cranial nerves II-XII grossly intact, normal speech, moves all 4 extremities. Psych: Positive SI with plan, negative HI or AVH. Tearful Past Med/Surg History Problem List (Updated 09/18/23 @ 18:34 by Joaquim Gonsalez MD) Depression with suicidal ideation (Acute) History of ADHD Post traumatic stress disorder (PTSD) Bipolar 2 disorder, major depressive episode UTI (urinary tract infection) (Acute) Medical History Connective tissue anomaly Pectus deformity POTS (postural orthostatic tachycardia syndrome) Suicidal ideation Depression Social History Smoking Status: Former smoker Preferred Language: Macedonian 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: Effective Stone Driller Required: No Beliefs That Will Affect Care: None Feels Safe at Home: Yes Gender Identity: Female Assistive Devices: None Allergies Allergies Allergy/AdvReac Type Severity Reaction Status Date / Time iodine Allergy Mild Rash Verified 09/18/23 16:01 Home Meds Home Medications Medication Instructions Recorded Confirmed No Known Home Medications 09/18/23 09/18/23 Results & Data (ED) Vital Signs Vital Signs - 24 hr 09/18/23 15:35 Temperature 36.5 C Temperature Source Temporal Artery Scan Pulse Rate 84 Respiratory Rate 16 Respiratory Effort / Characteristics Non-Labored Respiratory Depth Normal Blood Pressure 153/94 H Blood Pressure Mean 113 Blood Pressure Position Sitting Pulse Oximetry 97 Oxygen Delivery Method Room Air Sepsis Recent Fever Within 48 Hours No Sepsis New/Unexplained Change in Mental Status N/A Sepsis Action Taken by Nursing No Action Required Home Medications Current Medication List: was personally reviewed by me Laboratory Data Attestation: I reviewed the patient's lab results. 09/18/23 15:58 09/18/23 15:58 Lab Results 09/18/23 09/18/23 09/18/23 Range/Units 15:45 15:58 16:48 WBC 7.95 (4.8-10.8) K/ul RBC 4.97 (4.20-5.40) M/uL Hgb 15.4 (12.0-16.0) g/dl Hct 45.8 (37.0-47.0) % MCV 92.2 (80.0-100.0) fL MCH 31.0 (25.0-34.0) pg MCHC 33.6 (32.0-36.0) g/dL RDW Std Deviation 42.7 (36.4-46.3) fL RDW Coeff of Iq[place] 12.7 (11.5-14.5) % Plt Count 273 (130-400) K/uL MPV 10.6 (9.4-12.4) fL Immature Gran % (Auto) 0.3 % Neut % (Auto) 81.4 % Lymph % (Auto) 13.2 % [place] % (Auto) 4.7 % Eos % (Auto) 0.0 % Baso % (Auto) 0.4 % Neut # (Auto) 6.48 (1.40-6.50) K/uL Lymph # (Auto) 1.05 L (1.20-3.40) K/uL [place] # (Auto) 0.37 (0.11-0.59) K/uL Eos # (Auto) 0.00 (0.00-0.50) K/uL Baso # (Auto) 0.03 (0.00-0.20) K/uL Immature Gran # (Auto) 0.02 (0.01-0.20) K/uL Sodium 137 (136-145) mmol/L Potassium 3.8 (3.5-5.1) mmol/L Chloride 105 (98-107) mmol/L Carbon Dioxide 25 (21-32) mmol/L Anion Gap 7 (3-11) BUN 10 (6-23) mg/dl Creatinine 0.67 (0.6-1.2) mg/dl Est Cr Clr Drug Dosing 107.0 ml/min Est GFR ( Amer) 137.7 ml/min Est GFR (Non-Af Amer) 118.8 ml/min BUN/Creatinine Ratio 14.9 (10-20) Glucose 138 H (70-99(Fasting)) mg/dl Calcium 9.6 (8.6-10.3) mg/dl Total Bilirubin 0.8 (0.2-1.0) mg/dl AST 13 (13-39) U/L ALT 7 (7-52) U/L Alkaline Phosphatase 54 (34-104) U/L Total Protein 7.3 (6.0-8.3) gm/dl Albumin 4.5 (3.4-5.0) gm/dl Globulin 2.8 (2.5-4.0) gm/dl Albumin/Globulin Ratio 1.6 (0.9-2) TSH 0.658 (0.300-4.500) uIu/ml Urine Color Yellow Urine Appearance Cloudy A (Clear) Urine pH 6.0 (4.5-7.5) Ur Specific [place] 1.018 (1.000-1.030) Urine Protein Negative (Negative) Urine Glucose (UA) Negative (Negative) Urine Ketones 2+ H (Negative) Urine Blood 3+ H (Negative) Urine Nitrite Positive A (Negative) Urine Bilirubin Negative (Negative) Urine Urobilinogen Negative (Negative) Ur Leukocyte Esterase 2+ H (Negative) Urine WBC (Auto) 21-50 H (0-5) /hpf Urine RBC (Auto) >20 H (0-2) /hpf U Hyaline Cast (Auto) 0-2 (0-2) /lpf U Epithel Cells (Auto) 3-5 H (0-2) /hpf Urine Bacteria (Auto) 4+ H (None Seen) Urine Mucus Present A (None Prsent) Urine Test Negative (Negative) Salicylates < 3.0 L (3.0-30) mg/dl Urine Opiates Screen Neg (Neg) Ur Methadone, Qual Neg (Neg) Acetaminophen < 3 L (10-30) ug/ml Urine Barbiturates Neg (Neg) Ur Phencyclidine (PCP) Neg (Neg) U Amphetamin/Meth Scrn Neg (Neg) MDMA (Ecstasy) Screen Neg (Neg) U Benzodiazepines Scrn Neg (Neg) Ur Cocaine Metabolite Neg (Neg) U Marijuana (THC) Screen Neg (Neg) Ethyl Alcohol mg/dL < 10.0 (<10.0) mg/dl SARS-CoV-2, RNA, NAAT NEGATIVE (NEGATIVE) Administered Medications Discontinued Medications Lorazepam (Lorazepam 1 Mg Tab) 1 mg SL NOW STA Stop: 09/18/23 16:20 Last Admin: 09/18/23 16:24 Dose: 1 mg Documented By: ASW Discharge Plan Visit Data Chief Complaint: Mental Health Evaluation Stated Complaint: SUICIDAL IDEATION ED Provider: Joaquim Gonsalez Discharge Problem: Depression with suicidal ideation, UTI (urinary tract infection) Patient Disposition: Admitted As Inpatient Forms Stand Alone Forms: [facility], Suicide Prevention Resources Prescriptions Prescriptions: No Action No Known Home Medications Referrals Referrals: PCP,NO [Primary Care Provider] - Discharge Problem: UTI (urinary tract infection) Qualifiers: Urinary tract infection type: acute cystitis Hematuria presence: with hematuria Qualified Code(s): N30.01 - Acute cystitis with hematuria
[2023-09-18 16:07] LABS: Pregnancy Test, Urine Negative (Negative)
[2023-09-18] MEDS: LORazepam 1 MG TAB SL STA (16:24)
[2023-09-18 16:27] LABS: Amphetamines+Metham, Urine Neg (Neg); Barbiturates, Urine Neg (Neg); Benzodiazepine, Urine Neg (Neg); Cocaine, Urine Neg (Neg); MDMA (Ecstacy), Urine Neg (Neg); Marijuana, Urine Neg (Neg); Methadone, Urine Neg (Neg); Opiate, Urine Neg (Neg); Phencyclidine, Urine Neg (Neg)
[2023-09-18 16:27] LABS: Basophils # (auto) 0.03 K/uL (0.00-0.20); Basophils % (auto) 0.4 %; Hematocrit (blood only) 45.8 % (37.0-47.0); Hemoglobin 15.4 g/dl (12.0-16.0); Immature Granulocytes # (auto) 0.02 K/uL (0.01-0.20); Immature Granulocytes % (auto) 0.3 %; Lymphocytes # (auto) 1.05 K/uL (1.20-3.40); Lymphocytes % (auto) 13.2 %; Mean Corpuscular Hgb Conc 33.6 g/dL (32.0-36.0); Mean Corpuscular Volume 92.2 fL (80.0-100.0); Mean Platelet Volume 10.6 fL (9.4-12.4); Monocytes # (auto) 0.37 K/uL (0.11-0.59); Monocytes % (auto) 4.7 %; Neutrophils # (auto) 6.48 K/uL (1.40-6.50); Neutrophils % (auto) 81.4 %; Platelet Count 273 K/uL (130-400); RDW Coefficient of Variation 12.7 % (11.5-14.5); RDW Standard Deviation 42.7 fL (36.4-46.3); Red Blood Count 4.97 M/uL (4.20-5.40); White Blood Count 7.95 K/ul (4.8-10.8)
[2023-09-18 16:43] LABS: Acetaminophen < 3 ug/ml (10-30); Salicylate < 3.0 mg/dl (3.0-30)
[2023-09-18 16:44] LABS: Albumin Globulin Ratio 1.6 (0.9-2); Albumin Level 4.5 gm/dl (3.4-5.0); BUN Creatinine Ratio 14.9 (10-20); Bilirubin,Total 0.8 mg/dl (0.2-1.0); Calcium 9.6 mg/dl (8.6-10.3); Est GFR (African American) 137.7 ml/min; Est GFR (Non-African American) 118.8 ml/min; Globulin 2.8 gm/dl (2.5-4.0); Potassium 3.8 mmol/L (3.5-5.1); Total Protein 7.3 gm/dl (6.0-8.3)
[2023-09-18 16:58] LABS: Thyroid Stimulating Hormone 0.658 uIu/ml (0.300-4.500)
[2023-09-18 17:05] LABS: Appearance Urine Cloudy (Clear); Bacteria Urine Automated 4+ (None Seen); Bilirubin Urine Negative (Negative); Blood Urine 3+ (Negative); Cast Urine Automated 0-2 /lpf (0-2); Color Urine Yellow; Glucose Urine UA Negative (Negative); Ketones Urine 2+ (Negative); Leukocyte Esterase Urine 2+ (Negative); Mucus Urine Present (None Prsent); Nitrite Urine Positive (Negative); Protein Urine Negative (Negative); RBC Urine Automated >20 /hpf (0-2); Specific Gravity Urine 1.018 (1.000-1.030); Urobilinogen Urine Negative (Negative); WBC Urine Automated 21-50 /hpf (0-5)
[2023-09-18] MEDS: cephALEXin 250 MG CAP PO ONE (18:52)
[2023-09-18] MEDS ORDERED: hydrOXYzine HCl 25 MG TAB PO PRN ×3 (19:30→19:32)
[2023-09-18] MEDS ORDERED: ALUMINUM/MAGNESIUM SUSP 30 ML UDC PO PRN ×2 (19:30→19:32)
[2023-09-18] MEDS ORDERED: MAGNESIUM HYDROXIDE SUSP 30 ML UDC PO PRN ×2 (19:30→19:32)
[2023-09-18] MEDS ORDERED: BISMUTH SUBSALICYLATE LIQD 236 ML PO PRN ×2 (19:30→19:32)
[2023-09-18] MEDS ORDERED: SODIUM CHLORIDE 0.65% NA SOLN 45 ML (OCEAN) PRN ×2 (19:30→19:32)
[2023-09-18] MEDS ORDERED: ACETAMINOPHEN 325 MG TAB PO PRN ×2 (19:30→19:32)
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
[2023-09-19] MEDS: cephALEXin 500 MG CAP PO SCH (14:05)
[2023-09-19] MEDS: LITHIUM CARBONATE 300 MG TAB PO SCH (21:47)
[2023-09-19] MEDS: hydrOXYzine HCl 25 MG TAB PO PRN (21:54)
--- NOTE | 2023-09-20 08:45 | Psychiatric Progress Note ---
Date of Service September 20, 2023 Impression / Recommendations Heather Molina is a 27-year-old woman who currently lives in [place] with her children and mother, has a history of BPAD type II, BPD, ADHD, OCD, PTSD and was admitted on 09/18/23 19:24 on a 201 voluntary commitment for SI with plan and rehearsal behaviors of dying by helium inhalation. Diagnostically consistent with bipolar type II current depressive episode vs BPD vs PTSD. 09/20/2023: Depression and SI lessened today, she feels this is due to being in secure environment of the hospital. Engaging more in groups today, less isolative. Tolerating [employer] so far, she wants to try mirtazapine tonight but is afraid of possible ananaphylactic reaction due to anxiety/catastrophizing so she is working on reframing these fears and likes being in hospital where nurses are available to help should this occur. Overall, I spent a total of 35 minutes on this case including meeting with the patient, reviewing the chart, nursing report, multidisciplinary team meeting, orders, and documentation. (1) Depression with suicidal ideation: (2) Post traumatic stress disorder (PTSD): (3) Bipolar 2 disorder, major depressive episode: (4) History of ADHD: (5) Borderline personality disorder in adult: Plan 09/20/2023: -Continue current medications and tx plan. 09/19/2023: The patient was admitted to the [facility] ([facility] mental health unit) on q15 min checks (behavioral with suicide precautions) for safety. The patient will participate in group, recreational, and milieu therapies and will be offered additional individual and family sessions as clinically appropriate. -Mood Disorder Questionnaire -BPD screening -[employer] 300mg HS -Mirtazapine 7.5mg HS prn for insomnia -Keflex 500mg BID for 5 days for UTI (got one dose in the ED) Inventory Assets Strengths: started school, willing to get treatment Needs: safety and stabilization, medication adjustment, additional coping skills, increased outpatient services Suicide Risk Level Suicide Risk Level: Moderate (q15 min suicide checks) (SI with plan and rehearsal behaviors prior to admission, today denies SI) Risk Factors Assessment Male: No : Yes Do You Have Access To A Gun?: No Mental Health Diagnoses: Yes Previous Attempt: Yes Previous Psychiatric Hospitalization: Yes Hopelessness: Yes Protective Factors Assessment Responsible for Young Children: Yes Employed: No (but started as student) Stable Relationships: Yes Interval History Identifying Information KHADRA BURR is a 27-year-old woman who currently lives in [place] with her children and mother, has a history of BPAD type II, ADHD, OCD, PTSD and was admitted on 09/18/23 19:24 on a 201 voluntary commitment for SI with plan and rehearsal behaviors of dying by helium inhalation. Chief Complaint "I'm feeling better today". Review of Systems Sleep Information Total Hours of Sleep: 6.30 Sleep Comments: PRN Vistaril Meal Information Percent Meal Consumed - Lunch: 33 Percent Meal Consumed - Dinner: 100 Subjective Subjective Patient was seen & assessed and interval progress reviewed with treatment team nursing and social work. She did not attend any groups yesterday except evening community meeting and then did play a game with peers. Otherwise isolative to her room and talking on the phone. She took prn Vistaril, did not ask for mirtazapine. Nervous about medications and potential for severe reaction like anaphylaxis so didn't take mirtazapine but wants to try this tonight. Feels her mood is improving today. Thinks this is from being in the hospital and away from various stressors. She denies any side effects from the [employer], she likes that she has always tolerated this well. Physical Exam Psychiatric Orientation: alert and oriented x 3 Apperance: appropriately dressed and appropriately groomed Eye Contact: good eye contact Motor Behavior: no abnormal motor movements Speech: normal rate/rhythm/volume of speech Affect: + constricted affect Mood: + depressed mood and + anxious mood Thought Process: goal directed thought process Thought Content: reality based without delusions Suicidal Thoughts: denies suicidal thoughts (none so far today), denies suicidal plan (none for hospital, outside to use helium canister) and denies suicidal intent Homicidal Thoughts: denies homicidal thoughts Hallucinations: no auditory hallucinations and no visual hallucinations Cognition: recent memory grossly intact, remote memory grossly intact, attention grossly intact and language grossly intact Estimated Intelligence: consistent with education level Insight: + fair insight Judgment: + limited judgement Vital Signs (Past 24 Hours) Last Vital Signs Temp 36.8 C 09/20/23 06:39 Pulse 74 09/20/23 06:40 Resp 16 09/20/23 06:39 BP 104/72 09/20/23 06:40 Pulse Ox 97 09/18/23 19:58 O2 Del Method Room Air 09/18/23 19:58 A physical exam was performed in the ED by Dr. Gonsalez for the purposes of medical clearance. I accept that physical as correct and adequate for the purposes of the inpatient physical exam. Results & Data ([facility]) Current Inpatient Medications Current Inpatient Medications: Current Inpatient Medications Acetaminophen (Acetaminophen 325 Mg Tab) 650 mg PO Q4H PRN PRN Reason: Headache or Minor Fever Stop: 10/18/23 19:29 Al Hydrox/Mg Hydrox/Simethicone (Aluminum/Magnesium Susp 30 Ml Udc) 30 ml PO Q4H PRN PRN Reason: GI Upset Stop: 10/18/23 19:29 Bismuth Subsalicylate (Bismuth Subsalicylate Liqd 236 Ml) 15 ml PO PRN PRN PRN Reason: Loose Stool Stop: 10/18/23 19:29 Cephalexin HCl (Cephalexin 500 Mg Cap) 500 mg PO BID NANCY; Protocol Stop: 09/23/23 09:01 Last Admin: 09/19/23 21:48 Dose: 500 mg Hydroxyzine HCl (Hydroxyzine Hcl 25 Mg Tab) 25 mg PO Q4H PRN PRN Reason: Anxiety Stop: 10/18/23 19:29 Last Admin: 09/19/23 21:54 Dose: 25 mg [employer] Carbonate ([employer] Carbonate 300 Mg Tab) 300 mg PO HS NANCY Stop: 10/19/23 21:59 Last Admin: 09/19/23 21:47 Dose: 300 mg Magnesium Hydroxide (Magnesium Hydroxide Susp 30 Ml Udc) 30 ml PO DAILY PRN PRN Reason: Constipation Stop: 10/18/23 19:29 Mirtazapine (Mirtazapine Tab 15 Mg Tab) 7.5 mg PO HS PRN PRN Reason: insomnia Stop: 10/19/23 21:59 Sodium Chloride (Sodium Chloride 0.65% Na Soln 45 Ml ([place])) 1 - 2 sprays NA PRN PRN PRN Reason: Nasal Dryness/Congestion Stop: 10/18/23 19:29 Mental Health & Subst Abuse Tx Therapist Name of Therapist: N/A [employer] Name of Food Service [employer]ner: N/A
[2023-09-20] MEDS: MIRTAZAPINE TAB 15 MG TAB PO PRN (21:30)
--- NOTE | 2023-09-21 09:01 | Psychiatric Progress Note ---
Date of Service September 21, 2023 Impression / Recommendations Heather Molina is a 27-year-old woman who currently lives in [place] with her children and mother, has a history of BPAD type II, BPD, ADHD, OCD, PTSD and was admitted on 09/18/23 19:24 on a 201 voluntary commitment for SI with plan and rehearsal behaviors of dying by helium inhalation. Diagnostically consistent with bipolar type II current depressive episode vs BPD vs PTSD. 09/21/2023: Mood improving, denies SI and more engaged in groups and safety planning. Agreeable to friend disposing of helium canister, which friend will work on today. She is hopeful for discharge tomorrow if SI remains absent and she continues to feel safe. Tolerated initial dose of mirtazapine last night with good effect for sleep. She agrees to [place] level tomorrow morning. Still with some UTI symptoms, sensitivities reviewed and cephalosporin treatment appropriate, will have her continue for 7 day course instead of 5 days. Overall, I spent a total of 36 minutes on this case including meeting with the patient, reviewing the chart, nursing report, multidisciplinary team meeting, orders, and documentation. (1) Depression with suicidal ideation: (2) Post traumatic stress disorder (PTSD): (3) Bipolar 2 disorder, major depressive episode: (4) History of ADHD: (5) Borderline personality disorder in adult: Plan 09/21/2023: Continue current medications and tx plan. Safety planning ongoing. [place] level in AM 09/20/2023: -Continue current medications and tx plan. 09/19/2023: The patient was admitted to the [facility] ([facility]) on q15 min checks (behavioral with suicide precautions) for safety. The patient will participate in group, recreational, and milieu therapies and will be offered additional individual and family sessions as clinically appropriate. -Mood Disorder Questionnaire -BPD screening -[place] 300mg HS -Mirtazapine 7.5mg HS prn for insomnia -Keflex 500mg BID for 5 days for UTI (got one dose in the ED) Inventory Assets Strengths: started school, willing to get treatment Needs: safety and stabilization, medication adjustment, additional coping skills, increased outpatient services Suicide Risk Level Suicide Risk Level: Moderate (q15 min suicide checks) (SI with plan and rehearsal behaviors prior to admission but mood improving, denying SI) Risk Factors Assessment Male: No : Yes Do You Have Access To A Gun?: No Mental Health Diagnoses: Yes Previous Attempt: Yes Previous Psychiatric Hospitalization: Yes Hopelessness: Yes Protective Factors Assessment Responsible for Young Children: Yes Employed: No (but started as student) Stable Relationships: Yes Interval History Identifying Information TRACY BURR is a 27-year-old woman who currently lives in [place] with her children and mother, has a history of BPAD type II, ADHD, OCD, PTSD and was admitted on 09/18/23 19:24 on a 201 voluntary commitment for SI with plan and rehearsal behaviors of dying by helium inhalation. Chief Complaint "I feel a little better". Review of Systems Sleep Information Total Hours of Sleep: 6.30 Sleep Comments: PRN Remeron at HS Meal Information Percent Meal Consumed - Breakfast: 100 Percent Meal Consumed - Lunch: 100 Percent Meal Consumed - Dinner: 100 Subjective Subjective Patient was seen & assessed and interval progress reviewed with treatment team nursing and social work. Reporting decreasing SI. Rated her mood "anxious and tired" last night. She did take mirtazapine prn last night, sat in dayroom. She liked the mirtazapine last night, no side effects, and it helped her sleep. Continues to find [place] helpful. Notes she and her friend "argued" during support meeting but she feels they came to some type of resolution. Friend is going to work today on securing helium canister that she used for her near suicide attempt as friend had given it to Tracy's mother so it is currently in Tracy's home. She is agreeable to this being removed. She consents to [place] level tomorrow, knows it will be on the early side but she prefers this to having a level in 5-7 days given no current insurance and challenges with this outside of the hospital setting. Physical Exam Psychiatric Orientation: alert and oriented x 3 Apperance: appropriately dressed and appropriately groomed Eye Contact: good eye contact Motor Behavior: no abnormal motor movements Speech: normal rate/rhythm/volume of speech Affect: + constricted affect (but a few smiles today) Mood: + depressed mood Thought Process: goal directed thought process Thought Content: reality based without delusions Suicidal Thoughts: denies suicidal thoughts (none so far today), denies suicidal plan (friend working to secure helium canister used in near attempt) and denies suicidal intent Homicidal Thoughts: denies homicidal thoughts Hallucinations: no auditory hallucinations and no visual hallucinations Cognition: recent memory grossly intact, remote memory grossly intact, attention grossly intact and language grossly intact Estimated Intelligence: consistent with education level Insight: + fair insight Judgment: + fair judgement Vital Signs (Past 24 Hours) Last Vital Signs Temp 36.0 C L 09/21/23 05:54 Pulse 87 09/21/23 05:56 Resp 16 09/21/23 05:54 BP 113/79 09/21/23 05:56 Pulse Ox 97 09/18/23 19:58 O2 Del Method Room Air 09/18/23 19:58 Results & Data ([facility]) Current Inpatient Medications Current Inpatient Medications: Current Inpatient Medications Acetaminophen (Acetaminophen 325 Mg Tab) 650 mg PO Q4H PRN PRN Reason: Headache or Minor Fever Stop: 10/18/23 19:29 Al Hydrox/Mg Hydrox/Simethicone (Aluminum/Magnesium Susp 30 Ml Udc) 30 ml PO Q4H PRN PRN Reason: GI Upset Stop: 10/18/23 19:29 Bismuth Subsalicylate (Bismuth Subsalicylate Liqd 236 Ml) 15 ml PO PRN PRN PRN Reason: Loose Stool Stop: 10/18/23 19:29 Cephalexin HCl (Cephalexin 500 Mg Cap) 500 mg PO BID [facility]; Protocol Stop: 09/23/23 09:01 Last Admin: 09/21/23 08:47 Dose: 500 mg Hydroxyzine HCl (Hydroxyzine Hcl 25 Mg Tab) 25 mg PO Q4H PRN PRN Reason: Anxiety Stop: 10/18/23 19:29 Last Admin: 09/19/23 21:54 Dose: 25 mg [place] Carbonate ([place] Carbonate 300 Mg Tab) 300 mg PO HS NANCY Stop: 10/19/23 21:59 Last Admin: 09/20/23 21:34 Dose: 300 mg Magnesium Hydroxide (Magnesium Hydroxide Susp 30 Ml Udc) 30 ml PO DAILY PRN PRN Reason: Constipation Stop: 10/18/23 19:29 Mirtazapine (Mirtazapine Tab 15 Mg Tab) 7.5 mg PO HS PRN PRN Reason: insomnia Stop: 10/19/23 21:59 Last Admin: 09/20/23 21:30 Dose: 7.5 mg Sodium Chloride (Sodium Chloride 0.65% Na Soln 45 Ml (Martin)) 1 - 2 sprays NA PRN PRN PRN Reason: Nasal Dryness/Congestion Stop: 10/18/23 19:29 Mental Health & Subst Abuse Tx Therapist Name of Therapist: N/A Wringer Operator Name of Wringer Operator: N/A
[2023-09-21] MEDS: LITHIUM CARBONATE 300 MG TAB PO SCH (17:44)
[2023-09-22 06:30] VITALS: BP 104/72; PULSE 83; RESP 18; TEMP 98.6
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
== END 2023-09-22 11:58 | disposition home or self-care (01) | DRG 885 ==
LOC: ED 15:33 → 3S 19:15

== ENCOUNTER 2024-07-29 13:54 | Inpatient (IN) ==
[2024-07-29 14:45] LABS: Appearance Urine Clear (Clear); Bilirubin Urine Negative (Negative); Blood Urine Negative (Negative); Color Urine Yellow; Glucose Urine UA Negative (Negative); Ketones Urine Negative (Negative); Leukocyte Esterase Urine Negative (Negative); Nitrite Urine Negative (Negative); Protein Urine Negative (Negative); Specific Gravity Urine 1.009 (1.000-1.030); Urobilinogen Urine Negative (Negative)
[2024-07-29 15:03] LABS: Basophils # (auto) 0.04 K/uL (0.00-0.20); Basophils % (auto) 0.7 %; Eosinophils # (auto) 0.02 K/uL (0.00-0.50); Eosinophils % (auto) 0.3 %; Hematocrit (blood only) 43.2 % (37.0-47.0); Hemoglobin 14.8 g/dl (12.0-16.0); Immature Granulocytes # (auto) 0.01 K/uL (0.01-0.20); Immature Granulocytes % (auto) 0.2 %; Lymphocytes # (auto) 1.24 K/uL (1.20-3.40); Lymphocytes % (auto) 21.5 %; Mean Corpuscular Hemoglobin 31.2 pg (25.0-34.0); Mean Corpuscular Hgb Conc 34.3 g/dL (32.0-36.0); Mean Corpuscular Volume 91.1 fL (80.0-100.0); Mean Platelet Volume 10.1 fL (9.4-12.4); Monocytes # (auto) 0.44 K/uL (0.11-0.59); Monocytes % (auto) 7.6 %; Neutrophils # (auto) 4.02 K/uL (1.40-6.50); Neutrophils % (auto) 69.7 %; Platelet Count 250 K/uL (130-400); RDW Standard Deviation 40.1 fL (36.4-46.3); Red Blood Count 4.74 M/uL (4.20-5.40); White Blood Count 5.77 K/ul (4.8-10.8)
[2024-07-29 15:18] LABS: Albumin Globulin Ratio 1.8 (0.9-2); Albumin Level 4.6 gm/dl (3.4-5.0); BUN Creatinine Ratio 17.6 (10-20); Bilirubin,Total 0.6 mg/dl (0.2-1.0); Calcium 9.4 mg/dl (8.6-10.3); Creatinine Clr Calc Pharmacy 106.7 ml/min; Globulin 2.6 gm/dl (2.5-4.0); Potassium 3.6 mmol/L (3.5-5.1); Total Protein 7.2 gm/dl (6.0-8.3)
[2024-07-29 15:34] LABS: Thyroid Stimulating Hormone 0.482 uIu/ml (0.300-4.500)
[2024-07-29 15:49] LABS: Acetaminophen < 3 ug/ml (10-30); Salicylate < 3.0 mg/dl (3.0-30)
[2024-07-29 15:50] LABS: Amphetamines+Metham, Urine Neg (Neg); Barbiturates, Urine Neg (Neg); Benzodiazepine, Urine Neg (Neg); Cocaine, Urine Neg (Neg); Fentanyl, Urine Neg (Neg); MDMA (Ecstacy), Urine Neg (Neg); Marijuana, Urine Neg (Neg); Methadone, Urine Neg (Neg); Opiate, Urine Neg (Neg); Phencyclidine, Urine Neg (Neg)
[2024-07-29] MEDS ORDERED: ALUMINUM/MAGNESIUM SUSP 30 ML UDC PO PRN (17:34)
[2024-07-29] MEDS ORDERED: MAGNESIUM HYDROXIDE SUSP 30 ML UDC PO PRN (17:34)
[2024-07-29] MEDS ORDERED: BISMUTH SUBSALICYLATE 262 MG CHEW PO PRN (17:34)
[2024-07-29] MEDS ORDERED: hydrOXYzine HCl 25 MG TAB PO PRN ×2 (17:34)
[2024-07-29] MEDS ORDERED: SODIUM CHLORIDE 0.65% NA SOLN 45 ML (OCEAN) PRN (17:34)
[2024-07-29] MEDS ORDERED: ACETAMINOPHEN 325 MG TAB PO PRN (17:34)
--- NOTE | 2024-07-29 22:18 | Emergency Department Note ---
History of Present Illness General Chief complaint: Mental Health Evaluation Stated complaint: MENTAL HEALTH EVAL Time Seen by Provider: 07/29/24 14:22 History of Present Illness Provider complaint: Mental health evaluation 28-year-old female presents emergency department for mental health evaluation. Patient reports she is depressed and is having thoughts of wanting to kill her self. Patient reports that she has a plan to kill himself by filling her car with helium. She reports her symptoms have been triggered by the recent of her friend. No drugs or alcohol. Home Medications Medication Instructions Recorded Confirmed Type No Known Home Medications 07/29/24 07/29/24 History Allergies Allergy/AdvReac Type Severity Reaction Status Date / Time iodine Allergy Mild Rash Verified 09/19/23 12:01 Past Med/Surg History Problem List (Updated 07/29/24 @ 22:18 by Flako Jung MD) Depression with suicidal ideation (Acute) Borderline personality disorder in adult History of ADHD Post traumatic stress disorder (PTSD) Bipolar 2 disorder, major depressive episode UTI (urinary tract infection) (Acute) Medical History Depression with suicidal ideation Connective tissue anomaly Pectus deformity POTS (postural orthostatic tachycardia syndrome) Suicidal ideation Depression Social History Smoking Status: Never smoker Preferred Language: Amharic 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: Effective Manager Lab Required: No Beliefs That Will Affect Care: None Feels Safe at Home: Yes Gender Identity: Female Assistive Devices: None Physical Exam Vital Signs Vital Signs - 24 hr 07/29/24 13:56 07/29/24 15:58 Temperature 36.6 C 36.8 C Temperature Source Temporal Artery Scan Oral Pulse Rate 112 H Pulse Rate [Right Finger] 73 Pulse Rhythm [Right Finger] Regular Pulse Strength [Right Finger] Normal Respiratory Rate 18 16 Respiratory Effort / Characteristics Non-Labored Spontaneous Non-Labored Spontaneous Respiratory Depth Normal Normal Respiratory Pattern Regular Regular Blood Pressure 119/78 Blood Pressure [Right Arm] 105/58 L Blood Pressure Mean 91 Blood Pressure Mean [Right Arm] 73 Blood Pressure Position [Right Arm] Lying Pulse Oximetry 95 95 Oxygen Delivery Method Room Air Room Air Sepsis Recent Fever Within 48 Hours No Sepsis New/Unexplained Change in Mental Status N/A Sepsis Action Taken by Nursing No Action Required Physical Exam GENERAL: oriented to person, place, and time. appears well-developed and well- nourished. HENT: Exam performed. - Head: Normocephalic and atraumatic. EYES: Conjunctivae and EOM are normal. Right eye exhibits no discharge. Left eye exhibits no discharge. No scleral icterus. NECK: Normal range of motion. Neck supple. No JVD present. CV: Normal rate, regular rhythm, normal heart sounds and intact distal pulses. There is no peripheral edema. Palpable radial pulses bue. PULM/CHEST: Effort normal and breath sounds normal. No respiratory distress. No stridor. no wheezes. no rales. NEURO: Motor and sensation grossly intact. SKIN: Skin is warm and dry. He is not diaphoretic. PSYCH: Bizarre affect. Suicidal ideation. Patient appears sad. Course Course 1422: The patient was evaluated in room A5. A complete history and physical exam was performed 1700: Patient medically cleared. Accepted to 3 S. Medical Decision Making Laboratory Data Attestation: I reviewed the patient's lab results. 07/29/24 14:31 07/29/24 14:31 Lab Results 07/29/24 07/29/24 07/29/24 Range/Units 14:08 14:31 14:35 WBC 5.77 (4.8-10.8) K/ul RBC 4.74 (4.20-5.40) M/uL Hgb 14.8 (12.0-16.0) g/dl Hct 43.2 (37.0-47.0) % MCV 91.1 (80.0-100.0) fL MCH 31.2 (25.0-34.0) pg MCHC 34.3 (32.0-36.0) g/dL RDW Std Deviation 40.1 (36.4-46.3) fL RDW Coeff of Iqra 12.0 (11.5-14.5) % Plt Count 250 (130-400) K/uL MPV 10.1 (9.4-12.4) fL Immature Gran % (Auto) 0.2 % Neut % (Auto) 69.7 % Lymph % (Auto) 21.5 % [place] % (Auto) 7.6 % Eos % (Auto) 0.3 % Baso % (Auto) 0.7 % Neut # (Auto) 4.02 (1.40-6.50) K/uL Lymph # (Auto) 1.24 (1.20-3.40) K/uL [place] # (Auto) 0.44 (0.11-0.59) K/uL Eos # (Auto) 0.02 (0.00-0.50) K/uL Baso # (Auto) 0.04 (0.00-0.20) K/uL Immature Gran # (Auto) 0.01 (0.01-0.20) K/uL Sodium 139 (136-145) mmol/L Potassium 3.6 (3.5-5.1) mmol/L Chloride 106 (98-107) mmol/L Carbon Dioxide 25 (21-32) mmol/L Anion Gap 8 (3-11) BUN 13 (6-23) mg/dl Creatinine 0.74 (0.6-1.2) mg/dl Est Cr Clr Drug Dosing 106.7 ml/min eGFR 111.55 BUN/Creatinine Ratio 17.6 (10-20) Glucose 116 H (70-99(Fasting)) mg/dl Calcium 9.4 (8.6-10.3) mg/dl Total Bilirubin 0.6 (0.2-1.0) mg/dl AST 14 (13-39) U/L ALT 7 (7-52) U/L Alkaline Phosphatase 60 (34-104) U/L Total Protein 7.2 (6.0-8.3) gm/dl Albumin 4.6 (3.4-5.0) gm/dl Globulin 2.6 (2.5-4.0) gm/dl Albumin/Globulin Ratio 1.8 (0.9-2) TSH 0.482 (0.300-4.500) uIu/ml Urine Color Yellow Urine Appearance Clear (Clear) Urine pH 6.0 (4.5-7.5) Ur Specific [place] 1.009 (1.000-1.030) Urine Protein Negative (Negative) Urine Glucose (UA) Negative (Negative) Urine Ketones Negative (Negative) Urine Blood Negative (Negative) Urine Nitrite Negative (Negative) Urine Bilirubin Negative (Negative) Urine Urobilinogen Negative (Negative) Ur Leukocyte Esterase Negative (Negative) POC Ur Test NEG (NEG) Salicylates < 3.0 L (3.0-30) mg/dl Urine Opiates Screen Neg (Neg) Ur Methadone, Qual Neg (Neg) Urine Fentanyl Screen Neg (Neg) Acetaminophen < 3 L (10-30) ug/ml Urine Barbiturates Neg (Neg) Ur Phencyclidine (PCP) Neg (Neg) U Amphetamin/Meth Scrn Neg (Neg) MDMA (Ecstasy) Screen Neg (Neg) U Benzodiazepines Scrn Neg (Neg) Ur Cocaine Metabolite Neg (Neg) U Marijuana (THC) Screen Neg (Neg) Ethyl Alcohol mg/dL < 10.0 (<10.0) mg/dl SARS-CoV-2, RNA, NAAT NEGATIVE (NEGATIVE) MDM Narrative 1422: The patient was evaluated in room A5. A complete history and physical exam was performed 1700: Patient medically cleared. Accepted to 3 S. Impression & Plan Depression with suicidal ideation Discharge Plan Visit Data Chief Complaint: Mental Health Evaluation Stated Complaint: MENTAL HEALTH EVAL ED Provider: Flako Jung Discharge Problem: Depression with suicidal ideation Patient Disposition: Admitted As Inpatient Discharge Instructions Interventions: ED Discharge Assessment Last Done: 07/29/24 17:01
[2024-07-29] MEDS: MIRTAZAPINE TAB 15 MG TAB PO ONE (22:34)
[2024-07-30] MEDS ORDERED: LORazepam 0.5 MG TAB PO PRN (13:05)
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
[2024-07-30] MEDS: ARIPiprazole 5 MG TAB PO SCH (20:16)
[2024-07-30] MEDS: MIRTAZAPINE TAB 15 MG TAB PO SCH (20:16)
[2024-07-31 08:36] LABS: Chol HDL Ratio 2.8 (0-5)
[2024-07-31 10:28] LABS: Estimated Average Glucose 103 mg/dl; Hemoglobin A1C 5.2 % (4.5-5.6)
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
[2024-07-31] MEDS: CHOLECALCIFEROL 125 MCG (5,000 UNITS) TAB PO SCH (16:01)
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
[2024-08-01 11:34] LABS: Appearance Urine Cloudy (Clear); Bacteria Urine Automated 4+ (None Seen); Bilirubin Urine Negative (Negative); Blood Urine Negative (Negative); Color Urine Yellow; Glucose Urine UA Negative (Negative); Ketones Urine Trace (Negative); Leukocyte Esterase Urine Trace (Negative); Nitrite Urine Positive (Negative); Protein Urine Negative (Negative); RBC Urine Automated 0-2 /hpf (0-2); Specific Gravity Urine 1.029 (1.000-1.030); Urobilinogen Urine Negative (Negative)
[2024-08-01 11:36] LABS: Cast Urine Automated 0-2 /lpf (0-2)
[2024-08-01] MEDS: SULFAMETHOXAZOLE/TRIMETHOPRIM DS 800/160MG TAB PO ONE (13:32)
== END 2024-08-01 14:05 | disposition home or self-care (01) | DRG 881 ==
LOC: ED 13:54 → 3S 17:00

== ENCOUNTER 2024-10-22 06:56 | Inpatient (IN) ==
--- NOTE | 2024-10-22 07:34 | Emergency Department Note ---
Impression & Plan Depression with suicidal ideation, Leukopenia, UTI (urinary tract infection) ED Provider Note NAME: KHADRA BURR AGE: 28 SEX: F : 1995 ARRIVES VIA: Walk-In INFORMANT: Patient ED PROVIDER(S): Benson Simmons DO CHIEF COMPLAINT: Depression HPI: Patient is a 28-year-old female with a past medical history of pseudohallucinations, anxiety, depression, borderline personality, ADHD, PTSD, bipolar who stopped taking her Abilify and presents to the ER after getting to a fight with her boyfriend. She texted her friend that she was going to kill her self and it would be a relief. Her friend called police who then took her to the hospital in [place]. Her friend then picked her up and brought her here if she felt unsafe with her going home. Patient admits to thinking of ways to kill her self. She notes that she always has thoughts of wanting to every day but notes that it has gotten worse since this flight. She denies any chest pain or shortness of breath. No belly pain. No nausea, vomiting, or diarrhea. No dysuria, urgency, or frequency. No other exacerbating or remitting factors. ADDITIONAL HISTORY OBTAINED: Per HPI Chronic Medical/Social Conditions Affecting Care: Per HPI PAST MEDICAL HISTORY:See Below PAST SURGICAL HISTORY:See Below FAMILY HISTORY:See Below SOCIAL HISTORY:See Below HOME MEDICATIONS:See Below ALLERGIES:See Below VITALS:See Below PHYSICAL EXAMINATION: GENERAL: Sitting up in bed, alert, well appearing, well nourished, no distress, non-toxic EYE EXAM: normal conjunctiva. OROPHARYNX: no exudate, no erythema, lips, buccal mucosa, and tongue normal and mucous membranes are moist NECK: supple, no nuchal rigidity, no adenopathy, non-tender LUNGS: Clear to auscultation. Normal chest wall mechanics HEART: no murmurs, S1 normal and S2 normal ABDOMEN: abdomen soft, non-tender, normo-active bowel sounds, no masses, no rebound or guarding. UPPER EXTREMITIES: upper extremities are grossly normal. LOWER EXTREMITIES: No pitting edema. NEURO EXAM: Normal sensorium, cranial nerves II-XII grossly intact, normal speech, no gross weakness of arms, no gross weakness of legs. PSYCH: Admits to constant passive suicidal thoughts which have worsened recently. Good eye contact. Depressed with flat affect. MEDICAL DECISION MAKING: Patient is a 28-year-old female with a past medical history of hallucinations, anxiety, PTSD and ADHD who presents to the ER for suicidal ideations and feeling unsafe at home brought in by a friend. Her friend provided additional history that she made suicidal statements and felt uncomfortable with her at home. Discussed with her psychiatric anesthesiologist and critical care who evaluated her at bedside and agrees with admission. Patient is agreeable and admission is a 201. Labs showed a mild leukopenia at 4.3 thousand. No significant anemia. BMP low with LFTs bilirubin and TSH was reassuring. UA was contaminated with epithelial cells but did have plus for bacteria as well as whites leuks and nitrates. With this although patient has no symptoms did elect to treat after having conversation with the patient. Patient was given a dose of Keflex while in the ER. This should be continued throughout the course of her treatment. Patient was updated at bedside and referred to 3 S. and admitted on 201. Consults/Care Managements Discussions: Per MDM Triage Nursing notes reviewed. Limited review of prior medical records performed Vital Signs: reviewed and remarkable for no significant abnormalities Differential diagnosis: Mood disorder, infection, hypoglycemia, electrolyte abnormalities, cardiac sources, intracerebral event, toxicologic, trauma, neurologic, as well as other pathologies. ER treatment provided: See below Diagnostics interpreted by me include EKG and cardiac monitoring as listed below: -ECG: none -Laboratory studies:Interpreted by me as stated above in MDM and shown below. Imaging studies: Xrays: As interpreted by me:none CTs show: none Procedures:none Critical Care: None Past Med/Surg History Problem List (Updated 10/22/24 @ 12:49 by Benson Simmons DO) Leukopenia (Acute) Vitamin D deficiency Trauma and stressor-related disorder Pseudohallucinations Dissociation Antihistamine adverse reaction Generalized anxiety disorder with panic attacks Depression with suicidal ideation (Acute) Borderline personality disorder in adult History of ADHD Post traumatic stress disorder (PTSD) Bipolar 2 disorder, major depressive episode UTI (urinary tract infection) (Acute) Medical History Depression with suicidal ideation Connective tissue anomaly Pectus deformity POTS (postural orthostatic tachycardia syndrome) Suicidal ideation Depression Social History Smoking Status: Never smoker Preferred Language: Italian 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: 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 Beliefs That Will Affect Care: None Feels Safe at Home: Yes Gender Identity: Female Assistive Devices: None Allergies Allergies Allergy/AdvReac Type Severity Reaction Status Date / Time iodine Allergy Mild Rash Verified 09/19/23 12:01 hydroxyzine AdvReac Hypertensio Verified 10/22/24 07:37 n Home Meds Home Medications Medication Instructions Recorded Confirmed clonazepam 0.5 mg tablet 0.5 mg PO BID PRN Anxiety 10/22/24 10/22/24 lisdexamfetamine 10 mg capsule 10 mg PO BID 10/22/24 10/22/24 mirtazapine 7.5 mg tablet 7.5 mg PO HS 10/22/24 10/22/24 Previous Rx's Medication Instructions Recorded aripiprazole 5 mg tablet (Abilify) 5 mg PO HS #30 tabs 08/01/24 cholecalciferol (vitamin D3) 125 125 mcg PO QAM #30 tabs 08/01/24 mcg (5,000 unit) tablet mirtazapine 7.5 mg tablet 7.5 mg PO HS #30 tabs 08/01/24 Results & Data (ED) Vital Signs Vital Signs - 24 hr 10/22/24 06:57 10/22/24 09:12 10/22/24 11:47 Temperature 36.6 C Temperature Source Temporal Artery Scan Pulse Rate 96 H Pulse Rate [Left Finger] 81 Pulse Rhythm [Left Finger] Regular Pulse Strength [Left Finger] Normal Respiratory Rate 18 18 Respiratory Depth Normal Respiratory Pattern Regular Blood Pressure 116/68 Blood Pressure [Left Arm] 103/68 Blood Pressure Mean 84 Blood Pressure Mean [Left Arm] 79 Blood Pressure Position [Left Arm] Lying Pulse Oximetry 99 97 Oxygen Delivery Method Room Air Room Air Sepsis Recent Fever Within 48 Hours No Sepsis New/Unexplained Change in Mental Status N/A Sepsis Action Taken by Nursing No Action Required Laboratory Data 10/22/24 08:09 10/22/24 08:09 Lab Results 10/22/24 10/22/24 10/22/24 Range/Units 07:05 07:20 07:40 WBC (4.8-10.8) K/ul RBC (4.20-5.40) M/uL Hgb (12.0-16.0) g/dl Hct (37.0-47.0) % MCV (80.0-100.0) fL MCH (25.0-34.0) pg MCHC (32.0-36.0) g/dL RDW Std Deviation (36.4-46.3) fL RDW Coeff of Iqra (11.5-14.5) % Plt Count (130-400) K/uL MPV (9.4-12.4) fL Immature Gran % (Auto) % Neut % (Auto) % Lymph % (Auto) % Mcdowell % (Auto) % Eos % (Auto) % Baso % (Auto) % Neut # (Auto) (1.40-6.50) K/uL Lymph # (Auto) (1.20-3.40) K/uL Mcdowell # (Auto) (0.11-0.59) K/uL Eos # (Auto) (0.00-0.50) K/uL Baso # (Auto) (0.00-0.20) K/uL Immature Gran # (Auto) (0.01-0.20) K/uL Sodium (136-145) mmol/L Potassium (3.5-5.1) mmol/L Chloride (98-107) mmol/L Carbon Dioxide (21-32) mmol/L Anion Gap (3-11) BUN (6-23) mg/dl Creatinine (0.6-1.2) mg/dl Est Cr Clr Drug Dosing ml/min eGFR BUN/Creatinine Ratio (10-20) Glucose (70-99(Fasting)) mg/dl Calcium (8.6-10.3) mg/dl Total Bilirubin (0.2-1.0) mg/dl AST (13-39) U/L ALT (7-52) U/L Alkaline Phosphatase (34-104) U/L Total Protein (6.0-8.3) gm/dl Albumin (3.4-5.0) gm/dl Globulin (2.5-4.0) gm/dl Albumin/Globulin Ratio (0.9-2) TSH (0.300-4.500) uIu/ml Urine Color Yellow Urine Appearance Clear (Clear) Urine pH 6.0 (4.5-7.5) Ur Specific [place] 1.016 (1.000-1.030) Urine Protein Negative (Negative) Urine Glucose (UA) Negative (Negative) Urine Ketones 2+ H (Negative) Urine Blood 2+ H (Negative) Urine Nitrite Positive A (Negative) Urine Bilirubin Negative (Negative) Urine Urobilinogen Negative (Negative) Ur Leukocyte Esterase 1+ H (Negative) Urine WBC (Auto) 6-10 H (0-5) /hpf Urine RBC (Auto) 3-5 H (0-2) /hpf U Hyaline Cast (Auto) 0-2 (0-2) /lpf U Epithel Cells (Auto) 3-5 H (0-2) /hpf Urine Bacteria (Auto) 4+ H (None Seen) POC Ur Test NEG (NEG) Urine Comment Salicylates (3.0-30) mg/dl Urine Opiates Screen Neg (Neg) Ur Methadone, Qual Neg (Neg) Urine Fentanyl Screen Neg (Neg) Acetaminophen (10-30) ug/ml Urine Barbiturates Neg (Neg) Ur Phencyclidine (PCP) Neg (Neg) U Amphetamin/Meth Scrn Neg (Neg) MDMA (Ecstasy) Screen Neg (Neg) U Benzodiazepines Scrn Neg (Neg) Ur Cocaine Metabolite Neg (Neg) U Marijuana (THC) Screen Neg (Neg) Ethyl Alcohol mg/dL (<10.0) mg/dl SARS-CoV-2, RNA, NAAT NEGATIVE (NEGATIVE) 10/22/24 Range/Units 08:09 WBC 4.39 L (4.8-10.8) K/ul RBC 4.13 L (4.20-5.40) M/uL Hgb 12.7 (12.0-16.0) g/dl Hct 38.1 (37.0-47.0) % MCV 92.3 (80.0-100.0) fL MCH 30.8 (25.0-34.0) pg MCHC 33.3 (32.0-36.0) g/dL RDW Std Deviation 43.5 (36.4-46.3) fL RDW Coeff of Iqra 12.9 (11.5-14.5) % Plt Count 217 (130-400) K/uL MPV 10.6 (9.4-12.4) fL Immature Gran % (Auto) 0.2 % Neut % (Auto) 68.6 % Lymph % (Auto) 14.8 % Mcdowell % (Auto) 16.2 % Eos % (Auto) 0.0 % Baso % (Auto) 0.2 % Neut # (Auto) 3.01 (1.40-6.50) K/uL Lymph # (Auto) 0.65 L (1.20-3.40) K/uL Mcdowell # (Auto) 0.71 H (0.11-0.59) K/uL Eos # (Auto) 0.00 (0.00-0.50) K/uL Baso # (Auto) 0.01 (0.00-0.20) K/uL Immature Gran # (Auto) 0.01 (0.01-0.20) K/uL Sodium 139 (136-145) mmol/L Potassium 3.8 (3.5-5.1) mmol/L Chloride 107 (98-107) mmol/L Carbon Dioxide 24 (21-32) mmol/L Anion Gap 8 (3-11) BUN 10 (6-23) mg/dl Creatinine 0.72 (0.6-1.2) mg/dl Est Cr Clr Drug Dosing 110.5 ml/min eGFR 115.28 BUN/Creatinine Ratio 13.9 (10-20) Glucose 83 (70-99(Fasting)) mg/dl Calcium 8.8 (8.6-10.3) mg/dl Total Bilirubin 0.4 (0.2-1.0) mg/dl AST 12 L (13-39) U/L ALT 4 L (7-52) U/L Alkaline Phosphatase 47 (34-104) U/L Total Protein 6.4 (6.0-8.3) gm/dl Albumin 3.8 (3.4-5.0) gm/dl Globulin 2.6 (2.5-4.0) gm/dl Albumin/Globulin Ratio 1.5 (0.9-2) TSH 1.229 (0.300-4.500) uIu/ml Urine Color Urine Appearance (Clear) Urine pH (4.5-7.5) Ur Specific [place] (1.000-1.030) Urine Protein (Negative) Urine Glucose (UA) (Negative) Urine Ketones (Negative) Urine Blood (Negative) Urine Nitrite (Negative) Urine Bilirubin (Negative) Urine Urobilinogen (Negative) Ur Leukocyte Esterase (Negative) Urine WBC (Auto) (0-5) /hpf Urine RBC (Auto) (0-2) /hpf U Hyaline Cast (Auto) (0-2) /lpf U Epithel Cells (Auto) (0-2) /hpf Urine Bacteria (Auto) (None Seen) POC Ur Test (NEG) Urine Comment Salicylates < 3.0 L (3.0-30) mg/dl Urine Opiates Screen (Neg) Ur Methadone, Qual (Neg) Urine Fentanyl Screen (Neg) Acetaminophen < 3 L (10-30) ug/ml Urine Barbiturates (Neg) Ur Phencyclidine (PCP) (Neg) U Amphetamin/Meth Scrn (Neg) MDMA (Ecstasy) Screen (Neg) U Benzodiazepines Scrn (Neg) Ur Cocaine Metabolite (Neg) U Marijuana (THC) Screen (Neg) Ethyl Alcohol mg/dL < 10.0 (<10.0) mg/dl SARS-CoV-2, RNA, NAAT (NEGATIVE) Administered Medications Discontinued Medications Cephalexin HCl (Cephalexin 250 Mg Cap) 500 mg PO NOW ONE Stop: 10/22/24 09:40 Last Admin: 10/22/24 09:46 Dose: 500 mg Documented By: KIZZY Lorazepam (Lorazepam 1 Mg Tab) 1 mg SL NOW STA Stop: 10/22/24 09:49 Last Admin: 10/22/24 09:52 Dose: 1 mg Documented By: KIZZY Discharge Plan Visit Data Chief Complaint: Mental Health Evaluation Stated Complaint: MENTAL HEALTH HELP, SUICIDAL ED Provider: Benson Simmons Discharge Problem: Depression with suicidal ideation, Leukopenia, UTI (urinary tract infection) Patient Disposition: Admitted As Inpatient Condition: Fair Discharge Instructions Interventions: ED Discharge Assessment Last Done: 10/22/24 11:47 Discharge Problem: Leukopenia Qualifiers: Leukopenia type: unspecified Qualified Code(s): D72.819 - Decreased white blood cell count, unspecified UTI (urinary tract infection) Qualifiers: Urinary tract infection type: site unspecified Hematuria presence: without hematuria Qualified Code(s): N39.0 - Urinary tract infection, site not specified
[2024-10-22 07:47] LABS: Appearance Urine Clear (Clear); Bacteria Urine Automated 4+ (None Seen); Cast Urine Automated 0-2 /lpf (0-2); Glucose Urine UA Negative (Negative)
[2024-10-22 08:18] LABS: Amphetamines+Metham, Urine Neg (Neg); MDMA (Ecstacy), Urine Neg (Neg); Marijuana, Urine Neg (Neg)
[2024-10-22 08:39] LABS: Hematocrit (blood only) 38.1 % (37.0-47.0); Hemoglobin 12.7 g/dl (12.0-16.0); Immature Granulocytes # (auto) 0.01 K/uL (0.01-0.20); Immature Granulocytes % (auto) 0.2 %; Mean Corpuscular Hemoglobin 30.8 pg (25.0-34.0); Mean Corpuscular Volume 92.3 fL (80.0-100.0); Platelet Count 217 K/uL (130-400); RDW Standard Deviation 43.5 fL (36.4-46.3); Red Blood Count 4.13 M/uL (4.20-5.40); White Blood Count 4.39 K/ul (4.8-10.8)
[2024-10-22 08:51] LABS: Acetaminophen < 3 ug/ml (10-30); Salicylate < 3.0 mg/dl (3.0-30)
[2024-10-22 08:52] LABS: Alanine Aminotransferase 4.0 U/L (7-52); Albumin Globulin Ratio 1.5 (0.9-2); Alkaline Phosphatase 47.0 U/L (34-104); Anion Gap 8.0 (3-11); Bilirubin,Total 0.4 mg/dl (0.2-1.0); Blood Urea Nitrogen 10.0 mg/dl (6-23); Calcium 8.8 mg/dl (8.6-10.3); Carbon Dioxide 24.0 mmol/L (21-32); Chloride 107.0 mmol/L (98-107); Creatinine Clr Calc Pharmacy 110.5 ml/min; Globulin 2.6 gm/dl (2.5-4.0); Glucose 83.0 mg/dl (70-99(Fasting)); Potassium 3.8 mmol/L (3.5-5.1); Sodium 139.0 mmol/L (136-145); Total Protein 6.4 gm/dl (6.0-8.3)
[2024-10-22 09:06] LABS: Thyroid Stimulating Hormone 1.229 uIu/ml (0.300-4.500)
[2024-10-22] MEDS: LORazepam 1 MG TAB SL STA (09:52)
[2024-10-22] MEDS ORDERED: MAGNESIUM HYDROXIDE SUSP 30 ML UDC PO PRN (11:04)
[2024-10-22] MEDS ORDERED: BISMUTH SUBSALICYLATE 262 MG CHEW PO PRN (11:04)
[2024-10-22] MEDS ORDERED: SODIUM CHLORIDE 0.65% NA SOLN 45 ML (OCEAN) PRN (11:04)
[2024-10-22] MEDS ORDERED: ALUMINUM/MAGNESIUM SUSP 30 ML UDC PO PRN (11:04)
[2024-10-22] MEDS: LORazepam 0.5 MG TAB PO PRN (16:48)
[2024-10-22] MEDS: MIRTAZAPINE TAB 15 MG TAB PO SCH (20:53)
[2024-10-22] MEDS: ARIPiprazole 5 MG TAB PO SCH (23:21)
[2024-10-23] MEDS ORDERED: ARIPiprazole 5 MG TAB PO SCH (09:00)
[2024-10-23] MEDS: ACETAMINOPHEN 325 MG TAB PO PRN (10:45)
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
[2024-10-23] MEDS: clonazePAM 0.5 MG TAB PO ONE (12:21)
[2024-10-24] MEDS: CHOLECALCIFEROL 125 MCG (5,000 UNITS) TAB PO SCH (08:35)
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
[2024-10-24] MEDS: LORazepam 1 MG TAB PO PRN (20:44)
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
== END 2024-10-25 10:10 | disposition home or self-care (01) | DRG 881 ==
LOC: ED 06:56 → 3S 11:47
DX: F60.3 Borderline personality disorder; F60.5 Obsessive-compulsive personality disorder; R44.2 Other hallucinations; F32.A Depression, unspecified; R45.851 Suicidal ideations; N39.0 Urinary tract infection, site not specified; F31.9 Bipolar disorder, unspecified; G90.A Postural orthostatic tachycardia syndrome [POTS]; T45.0X5A Adverse effect of antiallergic and antiemetic drugs, initial encounter; E55.9 Vitamin D deficiency, unspecified; Y92.89 Other specified places as the place of occurrence of the external cause; F90.9 Attention-deficit hyperactivity disorder, unspecified type